=== PATIENT | female | born 2000 | race Caucasian/White ===

== ENCOUNTER 2019-05-31 03:14 | Emergency (ER) | payer SELFPAY ==
[2019-05-31 03:19] VITALS: BP 144/107; PULSE 120; RESP 16; TEMP 36.6; O2SAT 98; BMI 45.6
--- NOTE | 2019-05-31 03:59 | ED_ITS ---
Entered by Lisa Pereyra, acting as scribe for Scott Olea DO May 31, 2019 03:14 HPI - Headache General: Chief Complaint: Headache Stated Complaint: MIGRAINE,DIZZINESS Time Seen by Provider: 05/31/19 04:12 Source: patient Mode of arrival: ambulatory Limitations: no limitations History of Present Illness: HPI Narrative: 19 yo f came to the er p[facility] for a headache. Onset was 4 days ago. Pt states that she has also has been nauseous and rt arm has been itching since she got here. MD elicited complaint: headache Onset (ago): day(s) (4 days ago) Onset description: suddenly Severity: moderate Quality & Timing: throbbing Exacerbating factors: none Associated symptoms: Reports nausea; Deny chest pain, confusion, fever(s), rash or vomiting Treatments prior to arrival: other Review of Systems Const: Denies: fever Eyes: Denies: change in vision or blurry vision ENMT: Denies: painful swallowing, swelling of lips/tongue, bleeding gums, dental pain, Change in hearing, nose bleeds, post nasal drip or facial/sinus pain Card: Denies: chest pain Resp: Denies: shortness of breath, productive cough, non-productive cough or wheezing GI: Reports: nausea; Denies: vomiting : Denies: painful urination, urinary frequency, urinary urgency or blood in urine Musc: Denies: neck pain, back pain, redness or joint warmth Skin/Breast: Denies: rash Neuro: Denies: confusion Psych: Denies: anxiety, visual hallucinations or auditory hallucinations PFSH ED PFSH: Statuses (acute, chronic, etc) shown below reflect problem list status as previously entered and may not be historically accurate Social History Smoking and tobacco status: light tobacco smoker Physical Exam Const: GENERAL APPEARANCE: well developed ORIENTATION/CONSCIOUSNESS: Yes oriented to person, Yes oriented to place and Yes oriented to time HENMT: COMMON NORMALS: normocephalic, external ears normal and external nose normal HEAD & SCALP: normocephalic; no scalp tenderness FACE & SINUS: normal facial exam NOSE: external nose normal and no nasal discharge EXTERNAL EAR: Yes external ears normal MOUTH: tongue normal TEETH & GINGIVA: no abnormal tooth and associated gingiva THROAT: posterior oropharynx normal; no peritonsillar mass Eye: COMMON NORMALS: PERRL, EOMs intact bilaterally and conjunctivae normal EYELID: eyelids normal CONJUNCTIVA: Yes conjunctivae normal PUPIL: Yes PERRL Neck/C-Spine: COMMON NORMALS: full ROM GENERAL: No tracheal deviation CERVICAL SPINE: Yes normal cervical lordosis and No cervical spine tenderness Chest: COMMONS NORMALS: inspection of chest normal CHEST: No tenderness Resp: COMMON NORMALS: clear to auscultation bilaterally EFFORT & INSPECTION: No tachypneic, No respiratory distress, No retractions, No uses accessory muscles and No tracheal deviation AUSCULTATION: clear to auscultation bilaterally, no rhonchi, no wheezes and lung sounds not diminished Cardio: COMMON NORMALS: regular rate and regular rhythm RATE: regular rate RHYTHM: regular rhythm HEART SOUNDS: no murmurs PERIPHERAL PULSES: radial pulses present GI: INSPECTION: No abdominal distension AUSCULTATION: No hyperactive bowel sounds and No hypoactive bowel sounds PALPATION: No guarding and No rigid PERCUSSION: no dullness to percussion and no tympanic to percussion : COMMON NORMALS: Yes no CVA tenderness BLADDER/KIDNEY EXAM: Yes no CVA tenderness Back/Pelvis: COMMON NORMALS: no CVA tenderness Neuro: SENSORIUM/ORIENTATION: Yes oriented to person, Yes oriented to place and Yes oriented to time CRANIAL NERVES: Yes CN normal except as noted COORDINATION/BALANCE: [id number] test normal SPEECH: speech normal MOTOR EXAM: no pronator drift COORDINATION: [id number] test normal Psych: COMMON NORMALS: mental status grossly normal Skin: COMMON NORMALS: no rashes or lesions noted GENERAL SKIN EXAM: no rashes or lesions noted Course ED course: Improved headache. Vital Signs: Vital signs: Vital Signs Temperature 98 F 05/31/19 03:19 Pulse Rate 120 H 05/31/19 03:19 Respiratory Rate 17 05/31/19 05:31 Blood Pressure 144/107 05/31/19 03:19 Pulse Oximetry 98 05/31/19 03:19 MDM - Headache Lab Data: Attestation: I reviewed the patient's lab results. Labs: Lab Results 05/31/19 05/31/19 05/31/19 Range/Units 04:45 04:55 04:55 WBC 10.2 (4.5-13.0) 10^3/ uL RBC 4.18 (4.1-5.3) 10^6/u L Hgb 12.7 (11.5-15.3) g/dL Hct 38.2 (37.0-47.0) % MCV 91.4 (81-99) fL MCH 30.4 (28.0-34.0) pg MCHC 33.2 (30.0-36.0) g/dL RDW 12.1 (12.1-15.1) % Plt Count 209 (130-400) 10^3/c mm MPV 10.8 H (7.4-10.4) fL Neut % (Auto) 53.5 % Lymph % (Auto) 35.0 % [place] % (Auto) 8.3 % Eos % (Auto) 1.5 % Baso % (Auto) 0.4 % Neut # (Auto) 5.4 (1.8-8.0) 10^3/u L Lymph # (Auto) 3.6 (1.5-6.5) 10^3/u L [place] # (Auto) 0.8 (0.2-0.9) 10^3/u L Eos # (Auto) 0.2 (0.0-0.8) 10^3/u L Baso # (Auto) 0.0 (0.0-0.1) 10^3/u L Nucleated RBC % (a uto) 0 % Nucleated RBCs # 0.0 /100WBC Sodium 139 (136-145) mmol/L Potassium 4.1 (3.5-5.1) mmol/L Chloride 104 (98-107) mmol/L Carbon Dioxide 23 (22-29) mmol/L Anion Gap 16.1 (5-19) BUN 7 (6-20) mg/dL Creatinine 0.6 (0.5-0.9) mg/dL GFR Calculation 127.5 (90-130) mL/min Glucose 71 L (74-109) mg/dL Calcium 9.7 (8.5-10.5) mg/dL Total Bilirubin 0.3 (0.15-1.2) mg/dL AST 26 (0-32) U/L ALT 46 H (0-33) U/L Alkaline Phosphata se 87 (35-105) IU/L Total Protein 6.9 (6.6-8.7) g/dL Albumin 4.4 (3.5-5.2) g/dL Globulin 2.5 (1.3-4.6) g/dL HCG, Qual (Negative) Urine Color Yellow (Yellow) Urine Appearance Clear (CLEAR) Urine pH 5 (5-7) Ur Specific Gravit y 1.025 (1.005-1.030) Urine Protein Neg (Negative) Urine Glucose (UA) Norm (Normal) Urine Ketones Negative (Negative) Urine Occult Blood Neg (Negative) Urine Nitrate Negative (Negative) Urine Bilirubin Neg (NEGATIVE) Urine Urobilinogen Norm (Negative) mg/dL Ur Leukocyte Ghada ase Negative (Negative) 05/31/19 Range/Units 04:55 WBC (4.5-13.0) 10^3/ uL RBC (4.1-5.3) 10^6/u L Hgb (11.5-15.3) g/dL Hct (37.0-47.0) % MCV (81-99) fL MCH (28.0-34.0) pg MCHC (30.0-36.0) g/dL RDW (12.1-15.1) % Plt Count (130-400) 10^3/c mm MPV (7.4-10.4) fL Neut % (Auto) % Lymph % (Auto) % [place] % (Auto) % Eos % (Auto) % Baso % (Auto) % Neut # (Auto) (1.8-8.0) 10^3/u L Lymph # (Auto) (1.5-6.5) 10^3/u L [place] # (Auto) (0.2-0.9) 10^3/u L Eos # (Auto) (0.0-0.8) 10^3/u L Baso # (Auto) (0.0-0.1) 10^3/u L Nucleated RBC % (a uto) % Nucleated RBCs # /100WBC Sodium (136-145) mmol/L Potassium (3.5-5.1) mmol/L Chloride (98-107) mmol/L Carbon Dioxide (22-29) mmol/L Anion Gap (5-19) BUN (6-20) mg/dL Creatinine (0.5-0.9) mg/dL GFR Calculation (90-130) mL/min Glucose (74-109) mg/dL Calcium (8.5-10.5) mg/dL Total Bilirubin (0.15-1.2) mg/dL AST (0-32) U/L ALT (0-33) U/L Alkaline Phosphata se (35-105) IU/L Total Protein (6.6-8.7) g/dL Albumin (3.5-5.2) g/dL Globulin (1.3-4.6) g/dL HCG, Qual Negative (Negative) Urine Color (Yellow) Urine Appearance (CLEAR) Urine pH (5-7) Ur Specific Gravit y (1.005-1.030) Urine Protein (Negative) Urine Glucose (UA) (Normal) Urine Ketones (Negative) Urine Occult Blood (Negative) Urine Nitrate (Negative) Urine Bilirubin (NEGATIVE) Urine Urobilinogen (Negative) mg/dL Ur Leukocyte Ghada ase (Negative) Discharge Plan Discharge Patient Disposition: Home, Self-Care Clinical Impression: Headache Qualifiers: Headache type: unspecified Headache chronicity pattern: acute headache Intractability: not intractable Qualified Code(s): R51 - Headache Condition: Stable Discharge Orders: Discharge Order (Routine); Ordered 05/31/19 Ordered By: Scott Olea Referrals: Ruthie Chung PMHNP [Primary Care Provider] - Micky Eaton DO [Family Provider] - 4-7 days Discharge Diet: Advance as tolerated Discharge Activity: Resume usual activity Patient Instructions: Acute Headache (ED) Activity Restrictions/Additional Instructions: Return for worsening headache, fever, mental status changes, weakness, vomiting liquids or medications, other concerning symptoms. Coding Level of Care Code ED Occ Therapy Asst for Chg Fwd The documentation recorded by the Roddy morgan Stephanie Lyn, accurately reflects the service I personally performed and the decisions made by Lefty belcher Jeremy John, DO May 31, 2019 03:14
[2019-05-31 05:05] LABS: Basophils % 0.4 %; Eosinophils # 0.2 10^3/uL (0.0-0.8); Eosinophils % 1.5 %; Hematocrit 38.2 % (37.0-47.0); Hemoglobin 12.7 g/dL (11.5-15.3); Lymphocytes # 3.6 10^3/uL (1.5-6.5); Mean Corpuscular HGB Conc 33.2 g/dL (30.0-36.0); Mean Corpuscular Hemoglobin 30.4 pg (28.0-34.0); Mean Corpuscular Volume 91.4 fL (81-99); Mean Platelet Volume 10.8 fL (7.4-10.4); Monocytes # 0.8 10^3/uL (0.2-0.9); Monocytes % 8.3 %; Neutrophils # 5.4 10^3/uL (1.8-8.0); Neutrophils % 53.5 %; Nucleated Red Blood Cells % 0 %; Platelet Count 209 10^3/cmm (130-400); Red Blood Count 4.18 10^6/uL (4.1-5.3); Red Cell Distribution Width 12.1 % (12.1-15.1); White Blood Count 10.2 10^3/uL (4.5-13.0)
[2019-05-31 05:19] LABS: Add Urine Microscopic? NO
[2019-05-31 05:21] LABS: HCG, Serum Qual Negative (Negative)
[2019-05-31 05:26] LABS: Alanine Aminotransferase 46 U/L (0-33); Albumin Level 4.4 g/dL (3.5-5.2); Alkaline Phosphatase 87 IU/L (35-105); Anion Gap 16.1 (5-19); Aspartate Amino Transferase 26 U/L (0-32); Blood Urea Nitrogen 7 mg/dL (6-20); Calcium 9.7 mg/dL (8.5-10.5); Carbon Dioxide 23 mmol/L (22-29); Chloride 104 mmol/L (98-107); Globulin 2.5 g/dL (1.3-4.6); Glomerular Filtration Rate 127.5 mL/min (90-130); Glucose 71 mg/dL (74-109); Potassium 4.1 mmol/L (3.5-5.1); Sodium 139 mmol/L (136-145); Total Bilirubin 0.3 mg/dL (0.15-1.2); Total Protein 6.9 g/dL (6.6-8.7)
[2019-05-31 05:31] VITALS: RESP 17
[2019-05-31] MEDS: dexamethasone 4 mg/mL INJ 8 MG IVP (05:31)
[2019-05-31] MEDS: diphenhydrAMINE 50 mg/mL SDV 1mL IVP (05:31)
[2019-05-31] MEDS: fentaNYL 50 mcg/mL INJ 2mL 100 MCG IVP (05:31)
[2019-05-31] MEDS: ondansetron 2 mg/ML SDV 2 mL 4 MG IVP (05:32)
[2019-05-31 05:44] LABS: Bilirubin Urine Neg (NEGATIVE); Blood Urine Neg (Negative); Glucose Urine UA Norm (Normal); Ketones Urine Negative (Negative); Leukocyte Esterase Urine Negative (Negative); Nitrate Urine Negative (Negative); Protein Urine Neg (Negative); Specific Gravity, Urine 1.025 (1.005-1.030); Urine Appearance Clear (CLEAR); Urine Color Yellow (Yellow); Urobilinogen Urine Norm (Negative); pH Urine 5 (5-7)
[2019-05-31 07:45] VITALS: BP 139/92; PULSE 102; RESP 16; O2SAT 97
== END 2019-05-31 07:46 | disposition home or self-care (01) ==
PROVIDERS: Emergency Provider Emergency Medicine; Family Provider Electrodiagnostic Medicine; PCP Nurse Practitioner Psychiatric/Mental Health
DX: R51 Headache (principal); F17.210 Nicotine dependence, cigarettes, uncomplicated
CPT/HCPCS: 80053; 81003; 84703; 85025; 96374; 99281; J1100; J1200; J2405; J3010

== ENCOUNTER 2019-06-04 06:11 | Emergency (ER) | payer SELFPAY ==
[2019-06-04 06:12] VITALS: BMI 44.1
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
[2019-06-04 06:17] VITALS: BP 149/106; PULSE 110; RESP 16; TEMP 36.6; O2SAT 98
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
--- NOTE | 2019-06-04 06:52 | PC.NURSE ---
patient advised to provide urine specimen
[2019-06-04 07:05] LABS: Basophils # 0.1 10^3/uL (0.0-0.1); Basophils % 0.6 %; Eosinophils # 0.3 10^3/uL (0.0-0.8); Eosinophils % 2.4 %; Hematocrit 41.9 % (37.0-47.0); Hemoglobin 13.4 g/dL (11.5-15.3); Lymphocytes # 3.6 10^3/uL (1.5-6.5); Lymphocytes % 34.8 %; Mean Corpuscular Hemoglobin 28.8 pg (28.0-34.0); Mean Corpuscular Volume 89.9 fL (81-99); Monocytes # 0.6 10^3/uL (0.2-0.9); Monocytes % 5.6 %; Neutrophils # 5.7 10^3/uL (1.8-8.0); Neutrophils % 54.8 %; Nucleated Red Blood Cells % 0 %; Platelet Count 200 10^3/cmm (130-400); Red Blood Count 4.66 10^6/uL (4.1-5.3); Red Cell Distribution Width 12.1 % (12.1-15.1); White Blood Count 10.4 10^3/uL (4.5-13.0)
[2019-06-04 07:26] LABS: Anion Gap 17.3 (5-19); Blood Urea Nitrogen 9 mg/dL (6-20); Calcium 10.2 mg/dL (8.5-10.5); Carbon Dioxide 18 mmol/L (22-29); Chloride 101 mmol/L (98-107); Glomerular Filtration Rate 91.4 mL/min (90-130); Glucose 107 mg/dL (74-109); Osmolality Calculated 270 mOsm/kg (285-295); Potassium 4.3 mmol/L (3.5-5.1); Sodium 132 mmol/L (136-145)
[2019-06-04 08:44] LABS: Add Urine Microscopic? YES; Bilirubin Urine Neg (NEGATIVE); Blood Urine 2+ (Negative); Glucose Urine UA Norm (Normal); Ketones Urine Negative (Negative); Leukocyte Esterase Urine Negative (Negative); Nitrate Urine Negative (Negative); Protein Urine Neg (Negative); Specific Gravity, Urine 1.025 (1.005-1.030); Urine Appearance Clear (CLEAR); Urine Color Yellow (Yellow); Urobilinogen Urine Norm (Negative)
[2019-06-04 08:49] LABS: Add Urine Culture? No; Bacteria Urine 1+; Mucus Urine 1+; RBC Urine 0-4 /hpf (0-2); Squamous Epithelial Cell Urine 0-4 (0-5)
[2019-06-04 10:26] VITALS: PULSE 81; RESP 20; O2SAT 98
== END 2019-06-04 09:20 | disposition home or self-care (01) ==
PROVIDERS: Emergency Provider Family Medicine; Family Provider Electrodiagnostic Medicine; PCP Nurse Practitioner Psychiatric/Mental Health
DX: Z04.1 Encounter for examination and observation following transport accident (principal); V89.2XXA Person injured in unspecified motor-vehicle accident, traffic, initial encounter; F17.210 Nicotine dependence, cigarettes, uncomplicated
CPT/HCPCS: 36415; 73030; 73080; 73502; 73562; 80048; 81001; 85025; 99282; 99283

== ENCOUNTER → 2019-06-17 14:38 | Outpatient (BNVA) | payer OTHER, SELFPAY | PROVIDERS: Family Provider Electrodiagnostic Medicine; PCP Nurse Practitioner Psychiatric/Mental Health; Visit Provider Nurse Practitioner Psychiatric/Mental Health | DX: Z79.899 Other long term (current) drug therapy (principal); F31.13 Bipolar disorder, current episode manic without psychotic features, severe | CPT/HCPCS: 80061; 83036 ==

== ENCOUNTER 2019-06-20 18:33 | Emergency (ER) | payer SELFPAY ==
[2019-06-18 11:23] VITALS: BP 117/71; BMI 48.3
[2019-06-20 18:51] VITALS: BP 112/85; PULSE 106; RESP 20; TEMP 37; O2SAT 97; BMI 47.2
--- NOTE | 2019-06-20 19:05 | W.ED.GENADLT ---
HPI - General Adult General: Chief complaint: General Medical Stated complaint: cough, sore throat,body aches Time Seen by Provider: 06/20/19 19:03 History of Present Illness: HPI narrative: Fever aches chills times couple days. Patient did have flu vaccine. MD complaint: flu Onset (ago): day(s) (2) Associated symptoms: Reports cough and fevers/chills; Deny chest pain, dyspnea, headache(s), nausea, rash or vomiting Review of Systems Const: Reports: fever, chills and body aches Eyes: Denies: change in vision or blurry vision ENMT: Denies: throat pain or nasal congestion Card: Denies: chest pain or shortness of breath on exertion Resp: Reports: non-productive cough; Denies: shortness of breath or productive cough GI: Denies: abdominal pain, nausea or vomiting Musc: Denies: extremity pain Skin/Breast: Denies: rash Neuro: Denies: headache Psych: Denies: anxiety or depression Marty/Lymph: Denies: easy bruising PFSH ED PFSH: Social History Smoking and tobacco status: never smoked Current gender identity: Female Female Reproductive History: Date of last menstrual period: 06/08/19 Physical Exam Const: COMMON NORMALS: no apparent distress, average body habitus and oriented x3 HENMT: COMMON NORMALS: normocephalic HEAD & SCALP: normal to inspection and normocephalic FACE & SINUS: normal facial exam Eye: COMMON NORMALS: conjunctivae normal GENERAL EYE: normal appearance of both eyes CONJUNCTIVA: Yes conjunctivae normal Neck/C-Spine: COMMON NORMALS: no JVD Chest: COMMONS NORMALS: inspection of chest normal Resp: COMMON NORMALS: normal respiratory effort and clear to auscultation bilaterally AUSCULTATION: clear to auscultation bilaterally Cardio: COMMON NORMALS: no JVD, regular rate and regular rhythm RATE: regular rate RHYTHM: regular rhythm GI: COMMON NORMALS: normal to inspection, nondistended, normoactive bowel sounds Extremity: COMMON NORMALS: normal to inspection and full ROM Neuro: COMMON NORMALS: oriented x3 Course Vital Signs: Vital signs: Vital Signs Temperature 98.6 F 06/20/19 18:51 Pulse Rate 106 H 06/20/19 18:51 Respiratory Rate 20 H 06/20/19 18:51 Blood Pressure 112/85 06/20/19 18:51 Pulse Oximetry 97 06/20/19 18:51 Discharge Plan Discharge Prescriptions: No Action oxcarbazepine 150 mg tablet 150 mg PO BID RF: 0 Benadryl 25 mg Capsule 25 mg PO PRN RF: 0 Vicks Nyquil Nighttime Relief See Rx Instructions .ROUTE .COMPLEX RF: 0 gabapentin 300 mg Capsule 300 mg PO TID RF: 0 Remeron 15 mg Tablet 15 mg PO BEDTIME RF: 0 Coding Level of Care Code ED Specialist Managers for Reyna Johns
[2019-06-20 20:00] LABS: Rapid Strep A Test Negative (Negative)
[2019-06-20 20:12] LABS: Influenza A by IFA Negative (Negative); Influenza B by IFA Negative (Negative)
[2019-06-20 20:46] VITALS: BP 152/74; PULSE 80; RESP 17; O2SAT 98
== END 2019-06-20 20:47 | disposition home or self-care (01) ==
PROVIDERS: Emergency Medicine; Emergency Provider Nurse Practitioner Family; Family Provider Electrodiagnostic Medicine; PCP Nurse Practitioner Psychiatric/Mental Health
DX: R05 Cough (principal); J02.9 Acute pharyngitis, unspecified; R50.9 Fever, unspecified
CPT/HCPCS: 87081; 87804; 87880; 99282

== ENCOUNTER 2019-08-01 01:12 | Emergency (ER) | payer SELFPAY ==
[2019-06-18 11:23] VITALS: BP 117/71; BMI 48.3
[2019-08-01 01:21] VITALS: BP 122/86; PULSE 98; RESP 18; TEMP 36.6; O2SAT 96; BMI 47.2
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
--- NOTE | 2019-08-01 01:23 | W.ED.ABDPA2 ---
HPI - Abdominal Pain General: Chief Complaint: Abdominal Pain Stated Complaint: kidney stone Time Seen by Provider: 08/01/19 01:22 Source: patient Mode of arrival: ambulatory Limitations: no limitations History of Present Illness: HPI narrative: Patient comes in with onset umbilical pain radiating into the right flank starting this evening. Patient denies any fever. Patient does report some nausea. Patient appears well. Patient appears in mild pain. Patient thinks she has a kidney stone. Related Data: Date of Last Menstrual Period: 06/08/19 Review of Systems General: Reports: 10 or more systems reviewed and unremarkable except in HPI and below : Reports: flank pain; Denies: vaginal bleeding PFSH ED PFSH: Social History Smoking and tobacco status: never smoked Current gender identity: Female Female Reproductive History: Date of last menstrual period: 06/08/19 Physical Exam Const: COMMON NORMALS: no apparent distress and oriented x3 GENERAL APPEARANCE: cooperative HENMT: COMMON NORMALS: normocephalic, external ears normal, EAC's normal, TM's normal bilaterally and external nose normal HEAD & SCALP: normal to inspection and normocephalic FACE & SINUS: normal facial exam NOSE: external nose normal GENERAL EAR: hearing not grossly impaired EXTERNAL EAR: Yes external ears normal EXTERNAL AUDITORY CANAL: EAC's normal TYMPANIC MEMBRANE: TM's normal bilaterally MOUTH: oral and palatal mucosa normal THROAT: posterior oropharynx normal Eye: COMMON NORMALS: PERRL and EOMs intact bilaterally PUPIL: Yes PERRL Neck/C-Spine: COMMON NORMALS: full ROM and no lymphadenopathy Lymph: LYMPHATIC: no lymphedema noted Chest: COMMONS NORMALS: inspection of chest normal and palpation of chest normal Resp: COMMON NORMALS: normal respiratory effort and clear to auscultation bilaterally AUSCULTATION: clear to auscultation bilaterally Cardio: COMMON NORMALS: regular rate and regular rhythm RATE: regular rate RHYTHM: regular rhythm GI: COMMON NORMALS: normal to inspection, nondistended, normoactive bowel sounds and non-tender : BLADDER/KIDNEY EXAM: Yes CVA tenderness Back/Pelvis: COMMON NORMALS: thoracic and lumbar spine normal to inspection GENERAL BACK: Yes CVA tenderness CVA tenderness: right Extremity: COMMON NORMALS: normal to inspection GENERAL: No edema Neuro: COMMON NORMALS: oriented x3, moves all extremities and no focal motor deficits Psych: COMMON NORMALS: mental status grossly normal and cooperative Skin: COMMON NORMALS: no rashes or lesions noted GENERAL SKIN EXAM: no rashes or lesions noted Course Vital Signs: Vital signs: Vital Signs Temperature 97.8 F 08/01/19 01:21 Pulse Rate 98 08/01/19 01:21 Respiratory Rate 18 08/01/19 01:21 Blood Pressure 122/86 08/01/19 01:21 Pulse Oximetry 96 08/01/19 01:21 MDM - Abdominal Pain MDM Narrative: Medical decision making narrative: Patient comes in with suprapubic pain radiating into the right flank. On exam patient has some CVA tenderness in the right flank. Abdomen soft nontender with some minimal suprapubic tenderness on palpation. Respirations are even lungs are clear to auscultation. Differential diagnosis includes urinary tract infection, renal calculi, appendicitis, constipation, gastroenteritis. Laboratory values noted no significant white blood cell count, normal kidney function, normal liver function. CT scan of the abdomen pelvis noted no acute process or obstructing renal stone. Patient did have a small stone in the right kidney. Urinalysis did note positive nitrates and leukoesterase. Recommend treatment for urinary tract infection with a gram of Rocephin IM in the emergency department. Patient was given 30 mg of Toradol for pain and 4 mg of Zofran for nausea. Patient will be continued on cephalexin and Pyridium for the remainder of treatment. Patient was reviewed that she does have a penicillin allergy and she may have some cross-reactivity with the Keflex but the likelihood is small. Patient reports understanding agreed to plan and need for follow-up as needed. Lab Data: Labs: Lab Results 08/01/19 08/01/19 08/01/19 Range/Units 01:45 01:45 01:45 WBC 12.9 (4.5-13.0) 10^3/ uL RBC 4.50 (4.1-5.3) 10^6/u L Hgb 13.3 (11.5-15.3) g/dL Hct 40.6 (37.0-47.0) % MCV 90.2 (81-99) fL MCH 29.6 (28.0-34.0) pg MCHC 32.8 (30.0-36.0) g/dL RDW 12.0 L (12.1-15.1) % Plt Count 210 (130-400) 10^3/c mm MPV 11.1 H (7.4-10.4) fL Neut % (Auto) 60.2 % Lymph % (Auto) 28.1 % [place] % (Auto) 7.1 % Eos % (Auto) 3.2 % Baso % (Auto) 0.5 % Neut # (Auto) 7.8 (1.8-8.0) 10^3/u L Lymph # (Auto) 3.6 (1.5-6.5) 10^3/u L [place] # (Auto) 0.9 (0.2-0.9) 10^3/u L Eos # (Auto) 0.4 (0.0-0.8) 10^3/u L Baso # (Auto) 0.1 (0.0-0.1) 10^3/u L Nucleated RBC % (a uto) 0 % Nucleated RBCs # 0.0 /100WBC Sodium 137 (136-145) mmol/L Potassium 4.2 (3.5-5.1) mmol/L Chloride 98 (98-107) mmol/L Carbon Dioxide 27 (22-29) mmol/L Anion Gap 16.2 (5-19) BUN 12 (6-20) mg/dL Creatinine 0.9 (0.5-0.9) mg/dL GFR Calculation 79.8 L (90-130) mL/min Glucose 94 (65-115) mg/dL Calculated Osmolal ity 280 L (285-295) mOsm/k g Calcium 10.8 H (8.5-10.5) mg/dL Total Bilirubin 0.3 (0.15-1.2) mg/dL AST 18 (0-32) U/L ALT 29 (0-33) U/L Alkaline Phosphata se 83 (35-105) IU/L Total Protein 6.9 (6.6-8.7) g/dL Albumin 4.1 (3.5-5.2) g/dL Globulin 2.8 (1.3-4.6) g/dL HCG, Qual Negative (Negative) Urine Color (Yellow) Urine Appearance (CLEAR) Urine pH (5-7) Ur Specific Gravit y (1.005-1.030) Urine Protein (Negative) Urine Glucose (UA) (Normal) Urine Ketones (Negative) Urine Blood (Negative) Urine Nitrate (Negative) Urine Bilirubin (NEGATIVE) Urine Urobilinogen (Negative) mg/dL Ur Leukocyte Ghada ase (Negative) 08/01/19 Range/Units 02:00 WBC (4.5-13.0) 10^3/ uL RBC (4.1-5.3) 10^6/u L Hgb (11.5-15.3) g/dL Hct (37.0-47.0) % MCV (81-99) fL MCH (28.0-34.0) pg MCHC (30.0-36.0) g/dL RDW (12.1-15.1) % Plt Count (130-400) 10^3/c mm MPV (7.4-10.4) fL Neut % (Auto) % Lymph % (Auto) % [place] % (Auto) % Eos % (Auto) % Baso % (Auto) % Neut # (Auto) (1.8-8.0) 10^3/u L Lymph # (Auto) (1.5-6.5) 10^3/u L [place] # (Auto) (0.2-0.9) 10^3/u L Eos # (Auto) (0.0-0.8) 10^3/u L Baso # (Auto) (0.0-0.1) 10^3/u L Nucleated RBC % (a uto) % Nucleated RBCs # /100WBC Sodium (136-145) mmol/L Potassium (3.5-5.1) mmol/L Chloride (98-107) mmol/L Carbon Dioxide (22-29) mmol/L Anion Gap (5-19) BUN (6-20) mg/dL Creatinine (0.5-0.9) mg/dL GFR Calculation (90-130) mL/min Glucose (65-115) mg/dL Calculated Osmolal ity (285-295) mOsm/k g Calcium (8.5-10.5) mg/dL Total Bilirubin (0.15-1.2) mg/dL AST (0-32) U/L ALT (0-33) U/L Alkaline Phosphata se (35-105) IU/L Total Protein (6.6-8.7) g/dL Albumin (3.5-5.2) g/dL Globulin (1.3-4.6) g/dL HCG, Qual (Negative) Urine Color Yellow (Yellow) Urine Appearance Turbid (CLEAR) Urine pH 6 (5-7) Ur Specific Gravit y 1.020 (1.005-1.030) Urine Protein 1+ H (Negative) Urine Glucose (UA) Norm (Normal) Urine Ketones Negative (Negative) Urine Blood 3+ H (Negative) Urine Nitrate Positive H (Negative) Urine Bilirubin Neg (NEGATIVE) Urine Urobilinogen Norm (Negative) mg/dL Ur Leukocyte Ghada ase 2+ H (Negative) Discharge Plan Discharge Patient Disposition: Home, Self-Care Clinical Impression: Cystitis Condition: Stable Prescriptions: New cephalexin 500 mg capsule 500 mg PO BID 7 Days Qty: 14 RF: 0 phenazopyridine 200 mg tablet 200 mg PO Q8H PRN (Reason: urine pain) Qty: 6 RF: 0 No Action oxcarbazepine 150 mg tablet 150 mg PO BID RF: 0 Benadryl 25 mg Capsule 25 mg PO PRN RF: 0 Vicks Nyquil Nighttime Relief See Rx Instructions .ROUTE .COMPLEX RF: 0 gabapentin 300 mg Capsule 300 mg PO TID RF: 0 Remeron 15 mg Tablet 15 mg PO BEDTIME RF: 0 Discharge Orders: Discharge Order (Routine); Ordered 08/01/19 Ordered By: Ben Lawson Referrals: Micky Eaton DO [Primary Care Provider] - Discharge Diet: Usual diet Discharge Activity: Increase activity as tolerated Patient Instructions: Urinary Tract Infection in Women (ED) Activity Restrictions/Additional Instructions: Drink plenty of water Activity as tolerated Follow-up with primary care in one week as needed Return to ER for high fever or new concerns Coding Level of Care Code ED Human Machine Interface Engineer for Renya Fwd Exam Comprehensive
[2019-08-01] MEDS: ketorolac 30 mg/mL INJ IM (01:45)
[2019-08-01] MEDS: ondansetron 4 MG Tablet PO (01:50)
[2019-08-01 01:56] LABS: Basophils # 0.1 10^3/uL (0.0-0.1); Basophils % 0.5 %; Eosinophils # 0.4 10^3/uL (0.0-0.8); Eosinophils % 3.2 %; Hematocrit 40.6 % (37.0-47.0); Hemoglobin 13.3 g/dL (11.5-15.3); Lymphocytes # 3.6 10^3/uL (1.5-6.5); Lymphocytes % 28.1 %; Mean Corpuscular HGB Conc 32.8 g/dL (30.0-36.0); Mean Corpuscular Hemoglobin 29.6 pg (28.0-34.0); Mean Corpuscular Volume 90.2 fL (81-99); Mean Platelet Volume 11.1 fL (7.4-10.4); Monocytes # 0.9 10^3/uL (0.2-0.9); Monocytes % 7.1 %; Neutrophils # 7.8 10^3/uL (1.8-8.0); Neutrophils % 60.2 %; Nucleated Red Blood Cells % 0 %; Platelet Count 210 10^3/cmm (130-400); White Blood Count 12.9 10^3/uL (4.5-13.0)
[2019-08-01 02:06] LABS: HCG, Serum Qual Negative (Negative)
[2019-08-01 02:14] LABS: Alanine Aminotransferase 29 U/L (0-33); Albumin Level 4.1 g/dL (3.5-5.2); Alkaline Phosphatase 83 IU/L (35-105); Anion Gap 16.2 (5-19); Aspartate Amino Transferase 18 U/L (0-32); Blood Urea Nitrogen 12 mg/dL (6-20); Calcium 10.8 mg/dL (8.5-10.5); Carbon Dioxide 27 mmol/L (22-29); Chloride 98 mmol/L (98-107); Globulin 2.8 g/dL (1.3-4.6); Glomerular Filtration Rate 79.8 mL/min (90-130); Glucose 94 mg/dL (65-115); Osmolality Calculated 280 mOsm/kg (285-295); Potassium 4.2 mmol/L (3.5-5.1); Sodium 137 mmol/L (136-145); Total Bilirubin 0.3 mg/dL (0.15-1.2); Total Protein 6.9 g/dL (6.6-8.7)
[2019-08-01 02:55] LABS: Blood Urine 3+ (Negative); Glucose Urine UA Norm (Normal); Ketones Urine Negative (Negative); Protein Urine 1+ (Negative); Urine Appearance Turbid (CLEAR); Urine Color Yellow (Yellow); pH Urine 6 (5-7)
[2019-08-01 02:56] LABS: Add Urine Microscopic? YES; Bilirubin Urine Neg (NEGATIVE); Leukocyte Esterase Urine 2+ (Negative); Nitrate Urine Positive (Negative); Urobilinogen Urine Norm (Negative)
[2019-08-01 03:06] LABS: Add Urine Culture? No; Bacteria Urine 4+; RBC Urine 25-40 /hpf (0-2); Squamous Epithelial Cell Urine 15-25 (0-5); Transitional Epi Cells Urine 0-4 /hpf; WBC Urine TOO NUMEROUS TO CNT /hpf (0-5)
[2019-08-01] MEDS: lidocaine 1% INJ 20 mL 2.1 ML IM (03:10)
[2019-08-01] MEDS: cefTRIAXone 1,000 mg SDV 1000 MG IM (03:23)
[2019-08-01 03:24] VITALS: BP 134/88; PULSE 88; RESP 18; O2SAT 97
--- NOTE | 2019-08-01 04:14 | PC.NURSE ---
RN reviewed and agrees with assessment.
== END 2019-08-01 03:24 | disposition home or self-care (01) ==
PROVIDERS: Emergency Provider Nurse Practitioner Family; Family Provider Electrodiagnostic Medicine; PCP Electrodiagnostic Medicine
DX: N30.90 Cystitis, unspecified without hematuria (principal)
CPT/HCPCS: 12345; 74176; 80053; 81001; 84703; 85025; 96372; 99282; 99283; A9270; J0696; J1885; J2001; Q0162

== ENCOUNTER 2019-08-02 15:30 | Emergency (ER) | payer MEDICARE, SELFPAY ==
[2019-06-18 11:23] VITALS: BP 117/71; BMI 48.3
== END 2019-08-02 15:45 | disposition left against medical advice (07) ==
LOC: ER 08-18 12:58
PROVIDERS: Emergency Provider Physician Assistant; Family Provider Electrodiagnostic Medicine
DX: N30.90 Cystitis, unspecified without hematuria (principal); R11.2 Nausea with vomiting, unspecified; F17.200 Nicotine dependence, unspecified, uncomplicated
CPT/HCPCS: 99281

== ENCOUNTER 2019-08-04 00:40 | Emergency (ER) | payer SELFPAY ==
[2019-06-18 11:23] VITALS: BP 117/71; BMI 48.3
[2019-08-04 00:49] VITALS: BP 161/98; PULSE 131; RESP 24; TEMP 36.5; O2SAT 98; BMI 48.6
--- NOTE | 2019-08-04 01:04 | XR_ITS ---
WS: [id number] PORTABLE CHEST HISTORY: cough COMPARISON: 11/12/2018 Lungs are clear and well expanded. No pleural effusion or pneumothorax. Cardiac size: Normal. Mediastinum/Aorta: Normal mediastinum. No osseous abnormality seen. XR/XR chest 1V portable [id number] IMPRESSION: Unremarkable portable chest.
--- NOTE | 2019-08-04 01:05 | ED_ITS ---
HPI - General Adult General: Chief complaint: General Medical Stated complaint: Throwing up, coughing, fevers Time Seen by Provider: 08/04/19 00:46 History of Present Illness: HPI narrative: 19-year-old female, frequent patient to the ER. She presents with a history of fever to 103, cough, and vomiting. She states that she is been traveling to [place] last week, and Sunday was at a constitution party where people from [place] and [place] were. She states that a couple of the people got sick the day afterwards. She presents with a friend with the same exposure with similar symptoms. Onset (ago): day(s) (3) Location: chest Severity: moderate Severity scale (1-10): 4 Pain Consistency: constant Associated symptoms: Reports cough, fevers/chills, headache(s), nausea and vomiting; Deny chest pain, dyspnea, rash, palpitations or short of breath Review of Systems Const: Reports: fever and chills Eyes: Denies: change in vision or blurry vision ENMT: Reports: painful swallowing and post nasal drip; Denies: swelling of lips/tongue, bleeding gums or facial/sinus pain Card: Denies: chest pain, palpitations, irregular heart rhythm or edema Resp: Reports: non-productive cough; Denies: shortness of breath, productive cough or wheezing GI: Reports: nausea and vomiting : Denies: painful urination, urinary frequency, urinary urgency or blood in urine Musc: Denies: neck pain, back pain, redness or joint warmth Skin/Breast: Denies: rash, itching or redness Neuro: Reports: headache Psych: Denies: anxiety PFSH ED PFSH: Social History Smoking and tobacco status: current every day smoker Current gender identity: Female Female Reproductive History: Date of last menstrual period: 06/08/19 Physical Exam Const: GENERAL APPEARANCE: well developed ORIENTATION/CONSCIOUSNESS: Yes oriented to person, Yes oriented to place and Yes oriented to time HENMT: COMMON NORMALS: normocephalic, external ears normal, EAC's normal, TM's normal bilaterally and external nose normal HEAD & SCALP: normocephalic; no scalp tenderness FACE & SINUS: normal facial exam NOSE: external nose normal, septum normal and no nasal discharge EXTERNAL EAR: Yes external ears normal EXTERNAL AUDITORY CANAL: EAC's normal and EAC abnormal TYMPANIC MEMBRANE: TM's normal bilaterally MOUTH: tongue normal THROAT: posterior oropharynx normal; no peritonsillar mass Eye: COMMON NORMALS: PERRL, EOMs intact bilaterally and conjunctivae normal EYELID: eyelids normal CONJUNCTIVA: Yes conjunctivae normal PUPIL: Yes PERRL Neck/C-Spine: COMMON NORMALS: full ROM GENERAL: No tracheal deviation Chest: COMMONS NORMALS: inspection of chest normal CHEST: No tenderness Resp: COMMON NORMALS: clear to auscultation bilaterally EFFORT & INSPECTION: No tachypneic, No respiratory distress, No retractions, No uses accessory muscles and No tracheal deviation AUSCULTATION: clear to auscultation bilaterally, no rhonchi, no wheezes and lung sounds not diminished Cardio: COMMON NORMALS: regular rate and regular rhythm RATE: regular rate and tachycardic RHYTHM: regular rhythm HEART SOUNDS: no murmurs PERIPHERAL PULSES: radial pulses present GI: INSPECTION: No abdominal distension AUSCULTATION: No hyperactive bowel sounds and No hypoactive bowel sounds PALPATION: No guarding and No rigid PERCUSSION: no dullness to percussion and no tympanic to percussion : COMMON NORMALS: Yes no CVA tenderness BLADDER/KIDNEY EXAM: Yes no CVA tenderness Back/Pelvis: COMMON NORMALS: no CVA tenderness Neuro: SENSORIUM/ORIENTATION: Yes oriented to person, Yes oriented to place and Yes oriented to time Psych: COMMON NORMALS: mental status grossly normal Skin: COMMON NORMALS: no rashes or lesions noted GENERAL SKIN EXAM: no rashes or lesions noted Course Vital Signs: Vital signs: Vital Signs Temperature 97.7 F 08/04/19 00:49 Pulse Rate 76 08/04/19 05:20 Respiratory Rate 20 H 08/04/19 05:20 Blood Pressure 126/84 08/04/19 05:20 Pulse Oximetry 96 08/04/19 05:20 MDM - General Adult MDM Narrative: Medical decision making narrative: 19-year-old female presents with a history of fever at home, vomiting, and a cough. She was diagnosed with cystitis a couple of days ago. Her urine is still positive for urinary tract i nfection. I wonder about compliance on medication. She will be prescribed a different antibiotic, as Keflex may not cover. She is received a gram of Rocephin here. She is negative for strep, and influenza. Testing for novel coronavirus is completed. Lab Data: Labs: Lab Results 08/04/19 08/04/19 08/04/19 Range/Units 00:54 02:30 02:43 WBC 9.8 (4.5-13.0) 10^3/ uL RBC 4.19 (4.1-5.3) 10^6/u L Hgb 12.3 (11.5-15.3) g/dL Hct 41.0 (37.0-47.0) % MCV 97.9 (81-99) fL MCH 29.4 (28.0-34.0) pg MCHC 30.0 (30.0-36.0) g/dL RDW 12.1 (12.1-15.1) % Plt Count 143 (130-400) 10^3/c mm MPV 12.6 H (7.4-10.4) fL Neut % (Auto) 55.1 % Lymph % (Auto) 31.9 % [place] % (Auto) 7.6 % Eos % (Auto) 2.8 % Baso % (Auto) 0.7 % Neut # (Auto) 5.4 (1.8-8.0) 10^3/u L Lymph # (Auto) 3.1 (1.5-6.5) 10^3/u L [place] # (Auto) 0.7 (0.2-0.9) 10^3/u L Eos # (Auto) 0.3 (0.0-0.8) 10^3/u L Baso # (Auto) 0.1 (0.0-0.1) 10^3/u L Nucleated RBC % (a uto) 0 % Nucleated RBCs # 0.0 /100WBC Sodium (136-145) mmol/L Potassium (3.5-5.1) mmol/L Chloride (98-107) mmol/L Carbon Dioxide (22-29) mmol/L Anion Gap (5-19) BUN (6-20) mg/dL Creatinine (0.5-0.9) mg/dL GFR Calculation (90-130) mL/min Glucose (65-115) mg/dL Calculated Osmolal ity (285-295) mOsm/k g Calcium (8.5-10.5) mg/dL Total Bilirubin (0.15-1.2) mg/dL AST (0-32) U/L ALT (0-33) U/L Alkaline Phosphata se (35-105) IU/L C-Reactive Protein (0.0-4.9) mg/L Total Protein (6.6-8.7) g/dL Albumin (3.5-5.2) g/dL Globulin (1.3-4.6) g/dL HCG, Qual (Negative) Urine Color (Yellow) Urine Appearance (CLEAR) Urine pH (5-7) Ur Specific Gravit y (1.005-1.030) Urine Protein (Negative) Urine Glucose (UA) (Normal) Urine Ketones (Negative) Urine Blood (Negative) Urine Nitrate (Negative) Urine Bilirubin (NEGATIVE) Urine Urobilinogen (Negative) mg/dL Ur Leukocyte Ghada ase (Negative) Urine RBC (0-2) /hpf Urine WBC (0-5) /hpf Ur Squamous Epith Cells (0-5) Urine Bacteria (NONE) Urine Mucus Influenza Type A A g Negative (Negative) POC Influenza B Ag Negative (Negative) Group A Strep Rapi d Negative (Negative) 08/04/19 08/04/19 08/04/19 Range/Units 02:43 03:35 03:51 WBC (4.5-13.0) 10^3/ uL RBC (4.1-5.3) 10^6/u L Hgb (11.5-15.3) g/dL Hct (37.0-47.0) % MCV (81-99) fL MCH (28.0-34.0) pg MCHC (30.0-36.0) g/dL RDW (12.1-15.1) % Plt Count (130-400) 10^3/c mm MPV (7.4-10.4) fL Neut % (Auto) % Lymph % (Auto) % [place] % (Auto) % Eos % (Auto) % Baso % (Auto) % Neut # (Auto) (1.8-8.0) 10^3/u L Lymph # (Auto) (1.5-6.5) 10^3/u L [place] # (Auto) (0.2-0.9) 10^3/u L Eos # (Auto) (0.0-0.8) 10^3/u L Baso # (Auto) (0.0-0.1) 10^3/u L Nucleated RBC % (a uto) % Nucleated RBCs # /100WBC Sodium 138 (136-145) mmol/L Potassium 4.2 (3.5-5.1) mmol/L Chloride 103 (98-107) mmol/L Carbon Dioxide 24 (22-29) mmol/L Anion Gap 15.2 (5-19) BUN 8 (6-20) mg/dL Creatinine 0.8 (0.5-0.9) mg/dL GFR Calculation 91.4 (90-130) mL/min Glucose 107 (65-115) mg/dL Calculated Osmolal ity 282 L (285-295) mOsm/k g Calcium 9.4 (8.5-10.5) mg/dL Total Bilirubin 0.2 (0.15-1.2) mg/dL AST 22 (0-32) U/L ALT 25 (0-33) U/L Alkaline Phosphata se 73 (35-105) IU/L C-Reactive Protein 57.1 H (0.0-4.9) mg/L Total Protein 6.6 (6.6-8.7) g/dL Albumin 3.6 (3.5-5.2) g/dL Globulin 3.0 (1.3-4.6) g/dL HCG, Qual Negative (Negative) Urine Color Yellow (Yellow) Urine Appearance Cloudy (CLEAR) Urine pH 5 (5-7) Ur Specific Gravit y 1.020 (1.005-1.030) Urine Protein Neg (Negative) Urine Glucose (UA) Norm (Normal) Urine Ketones Negative (Negative) Urine Blood 2+ H (Negative) Urine Nitrate Negative (Negative) Urine Bilirubin Neg (NEGATIVE) Urine Urobilinogen Norm (Negative) mg/dL Ur Leukocyte Ghada ase 2+ H (Negative) Urine RBC 5-10 H (0-2) /hpf Urine WBC 15-25 H (0-5) /hpf Ur Squamous Epith Cells 15-25 H (0-5) Urine Bacteria 1+ H (NONE) Urine Mucus 1+ Influenza Type A A g (Negative) POC Influenza B Ag (Negative) Group A Strep Rapi d (Negative) Discharge Plan Discharge Patient Disposition: Home, Self-Care Clinical Impression: Cystitis Vomiting Qualifiers: Vomiting type: unspecified Vomiting Intractability: unspecified Nausea presence: with nausea Qualified Code(s): R11.2 - Nausea with vomiting, unspecified Condition: Stable Prescriptions: New Zofran 4 mg tablet 4 mg PO Q6H PRN (Reason: nausea and vomiting) Qty: 10 RF: 0 Macrobid 100 mg capsule 100 mg PO Q12H 7 Days Qty: 14 RF: 0 No Action cephalexin 500 mg capsule 500 mg PO BID 7 Days Qty: 14 RF: 0 phenazopyridine 200 mg tablet 200 mg PO Q8H PRN (Reason: urine pain) Qty: 6 RF: 0 oxcarbazepine 150 mg tablet 150 mg PO BID RF: 0 Benadryl 25 mg Capsule 25 mg PO PRN RF: 0 Vicks Nyquil Nighttime Relief See Rx Instructions .ROUTE .COMPLEX RF: 0 gabapentin 300 mg Capsule 300 mg PO TID RF: 0 Remeron 15 mg Tablet 15 mg PO BEDTIME RF: 0 Discharge Orders: Discharge Order (Routine); Ordered 08/04/19 Ordered By: Scott Olea Referrals: Micky Eaton DO [Primary Care Provider] - 4-7 days Discharge Diet: Advance as tolerated Discharge Activity: Increase activity as tolerated Patient Instructions: Urinary Tract Infection in Women (ED) Activity Restrictions/Additional Instructions: You should quarantine your self at home until test results for the novel coronavirus are completed and confirmed negative. Take the new antibiotic for your bladder infection. Take the nausea medication scheduled for the next 24 hours, then as needed. Return for worsening symptoms despite treatment Discharge Date/Time: 08/04/19 05:20 Coding Level of Care Code ED It Program Engagement Director for Reyna Fwd Exam Comprehensive
[2019-08-04 01:49] LABS: Influenza A by IFA Negative (Negative); Influenza B by IFA Negative (Negative)
[2019-08-04 02:22] VITALS: BP 104/75; PULSE 88; RESP 20; O2SAT 98
[2019-08-04] MEDS: lactated ringers 1,000 ML 999 ML IV (02:24)
[2019-08-04 02:50] LABS: Basophils # 0.1 10^3/uL (0.0-0.1); Basophils % 0.7 %; Eosinophils # 0.3 10^3/uL (0.0-0.8); Eosinophils % 2.8 %; Hemoglobin 12.3 g/dL (11.5-15.3); Lymphocytes # 3.1 10^3/uL (1.5-6.5); Lymphocytes % 31.9 %; Mean Corpuscular Hemoglobin 29.4 pg (28.0-34.0); Mean Corpuscular Volume 97.9 fL (81-99); Mean Platelet Volume 12.6 fL (7.4-10.4); Monocytes # 0.7 10^3/uL (0.2-0.9); Monocytes % 7.6 %; Neutrophils # 5.4 10^3/uL (1.8-8.0); Neutrophils % 55.1 %; Nucleated Red Blood Cells % 0 %; Platelet Count 143 10^3/cmm (130-400); Red Blood Count 4.19 10^6/uL (4.1-5.3); Red Cell Distribution Width 12.1 % (12.1-15.1); White Blood Count 9.8 10^3/uL (4.5-13.0)
[2019-08-04 02:59] LABS: HCG, Serum Qual Negative (Negative)
[2019-08-04 03:00] VITALS: BP 102/67; PULSE 90; RESP 22; O2SAT 98
[2019-08-04 03:00] LABS: Rapid Strep A Test Negative (Negative)
[2019-08-04 04:01] LABS: Add Urine Microscopic? YES; Bilirubin Urine Neg (NEGATIVE); Blood Urine 2+ (Negative); Glucose Urine UA Norm (Normal); Ketones Urine Negative (Negative); Leukocyte Esterase Urine 2+ (Negative); Nitrate Urine Negative (Negative); Protein Urine Neg (Negative); Urine Appearance Cloudy (CLEAR); Urine Color Yellow (Yellow); Urobilinogen Urine Norm (Negative); pH Urine 5 (5-7)
[2019-08-04 04:02] LABS: Bacteria Urine 1+; Mucus Urine 1+; Squamous Epithelial Cell Urine 15-25 (0-5); WBC Urine 15-25 /hpf (0-5)
[2019-08-04 04:15] LABS: Alanine Aminotransferase 25 U/L (0-33); Albumin Level 3.6 g/dL (3.5-5.2); Alkaline Phosphatase 73 IU/L (35-105); Anion Gap 15.2 (5-19); Aspartate Amino Transferase 22 U/L (0-32); Blood Urea Nitrogen 8 mg/dL (6-20); C Reactive Protein 57.1 mg/L (0.0-4.9); Calcium 9.4 mg/dL (8.5-10.5); Carbon Dioxide 24 mmol/L (22-29); Chloride 103 mmol/L (98-107); Glomerular Filtration Rate 91.4 mL/min (90-130); Glucose 107 mg/dL (65-115); Osmolality Calculated 282 mOsm/kg (285-295); Potassium 4.2 mmol/L (3.5-5.1); Sodium 138 mmol/L (136-145); Total Bilirubin 0.2 mg/dL (0.15-1.2); Total Protein 6.6 g/dL (6.6-8.7)
[2019-08-04] MEDS: cefTRIAXone 1,000 MG in sodium chloride 0.9% (plus) 50 ML 100 MG IV (04:40)
[2019-08-04 05:20] VITALS: BP 126/84; PULSE 76; RESP 20; O2SAT 96
[2019-08-06 11:08] LABS: Coronavirus Overall Results NOT DETECTED
== END 2019-08-04 05:20 | disposition home or self-care (01) ==
PROVIDERS: Emergency Provider Emergency Medicine; Family Provider Electrodiagnostic Medicine; PCP Electrodiagnostic Medicine
DX: N30.90 Cystitis, unspecified without hematuria (principal); R11.10 Vomiting, unspecified; F17.200 Nicotine dependence, unspecified, uncomplicated
CPT/HCPCS: 12345; 36415; 71045; 80053; 81001; 84703; 85025; 86140; 87081; 87635; 87804; 87880; 96360; 96365; 99283; A9270; J0696

== ENCOUNTER 2019-11-19 22:08 | Emergency (ER) | payer SELFPAY ==
[2019-06-18 11:23] VITALS: BP 117/71; BMI 48.3
[2019-11-19 22:22] VITALS: BP 136/83; PULSE 119; RESP 18; TEMP 36.8; O2SAT 98; BMI 49.4
--- NOTE | 2019-11-19 22:33 | XRR_ITS ---
PROCEDURE INFORMATION: Exam: XR Chest, 1 View Exam date and time: 11/19/2019 10:53 PM Age: 19 years old Clinical indication: Cough and fever; Patient HX: Chest pain when coughing, sore throat; Additional info: Fever and cough x 4 days TECHNIQUE: Imaging protocol: XR of the chest Views: 1 view. COMPARISON: CR XR chest 1V portable [id number] 08/04/2019 1:24 AM FINDINGS: Lungs: Unremarkable. No consolidation. Pleural space: Unremarkable. No pleural effusion. No pneumothorax. Heart/Mediastinum: Unremarkable. No cardiomegaly. Bones/joints: Unremarkable. XR/XR chest 1V portable [id number] IMPRESSION: No acute findings.
--- NOTE | 2019-11-19 22:34 | ED_ITS ---
HPI - URI/Sore Throat General: Chief Complaint: Upper Respiratory Infection Stated Complaint: COUGH, FEVER; PAINFUL/SOB Time Seen by Provider: 11/19/19 22:33 History of Present Illness: HPI Narrative: Patient is a 19-year-old female comes to the ED with a productive cough, fever and sore throat. Patient has a past medical history of asthma and has used her albuterol inhaler to help with symptoms. Patient says first symptom was a fever and it started 4 days ago. Patient is her highest temperature is been approximately 102 degrees. She then started developing a productive cough with white sputum. She has had a couple episodes of diarrhea. Her sore throat started after the fever and cough. She describes a sore throat is irritated from the cough. She has been taking Tylenol for fevers and her last dose was around 3 PM today. She states she has been drinking fluids and has had no episodes of nausea or vomiting. Denies any ear pain, nasal discharge or drainage, dysuria or hematuria. Associated symptoms: Reports diarrhea and fever(s); Deny abdominal pain, chills, chest pain, headache(s), nasal congestion, nausea or vomiting Review of Systems Const: Reports: fever(s); Denies: chills or fatigue Eyes: Denies: change in vision or eye discomfort ENMT: Reports: throat pain; Denies: odynophagia, nasal discharge or nasal congestion Card: Denies: chest pain, palpitations, edema, swelling of feet/ankles, dyspnea on exertion or orthopnea Resp: Reports: productive cough and wheezing; Denies: dyspnea or non-productive cough GI: Reports: diarrhea; Denies: abdominal pain, nausea, vomiting, constipation or hematochezia : Denies: flank pain, dysuria or hematuria Musc: Denies: neck pain, back pain or extremity swelling Skin/Breast: Denies: rash or new lesions Neuro: Denies: headache(s), numbness in extremities or weakness in extremities PFSH ED PFSH: Medical History Bipolar disorder, current episode manic without psychotic features, severe Borderline personality disorder Chronic post-traumatic stress disorder (PTSD) Marijuana use, episodic Nicotine dependence, cigarettes, uncomplicated Personal history of traumatic brain injury Social History Smoking and tobacco status: current every day smoker Current gender identity: Female Female Reproductive History: Date of last menstrual period: 06/08/19 Physical Exam Const: COMMON NORMALS: no acute distress, patient oriented x3 and alert GENERAL APPEARANCE: cooperative and comfortable NUTRITIONAL APPEARANCE: obese HENMT: COMMON NORMALS: normocephalic HEAD & SCALP: normocephalic MOUTH: Normal oral and palatal mucosa present THROAT: uvula midline and posterior oropharynx abnormal erythema; no exudates Neck/C-Spine: COMMON NORMALS: supple GENERAL: Yes normal visual inspection Lymph: LYMPHATIC: no lymphadenopathy noted (No cervical lymphadenopathy palpated.) Resp: COMMON NORMALS: normal respiratory effort, No retractions and No use of accessory muscles EFFORT & INSPECTION: Yes able to speak in complete sentences, No tachypneic, No labored and Yes Actively coughing productive AUSCULTATION: wheezes expiratory wheezes (Mild in the upper lobes bilaterally.) and diminished lung sounds bilateral in the upper lung simental Cardio: COMMON NORMALS: regular rate, regular rhythm, S1 normal heart sound present, S2 normal heart sound present, No gallops present (Cardio), No clicks present (Cardio), No murmurs present (Cardio) and Peripheral pulses 2+ throughout RATE: regular rate RHYTHM: regular rhythm HEART SOUNDS: S1 normal heart sound present and S2 normal heart sound present PERIPHERAL PULSES: Peripheral pulses 2+ throughout GI: COMMON NORMALS: Normal to inspection, nondistended, normoactive bowel sounds present, Soft to palpation, non-tender and no masses INSPECTION: Yes central obesity PALPATION: Yes Soft to palpation : COMMON NORMALS: Yes no CVA tenderness BLADDER/KIDNEY EXAM: Yes no CVA tenderness Back/Pelvis: COMMON NORMALS: no CVA tenderness Extremity: COMMON NORMALS: normal to inspection and no pedal edema Neuro: COMMON NORMALS: patient oriented x3 and moves all extremities SENSORIUM/ORIENTATION: Yes alert Skin: COMMON NORMALS: no rashes or lesions noted GENERAL SKIN EXAM: no rashes or lesions noted and dry skin Course Vital Signs: Vital signs: Vital Signs Temperature 98.2 F 11/19/19 22:22 Pulse Rate 99 11/20/19 00:36 Respiratory Rate 18 11/20/19 01:20 Blood Pressure 139/84 11/20/19 01:20 Pulse Oximetry 99 11/20/19 00:30 MDM - URI/Sore Throat MDM Narrative: Medical decision making narrative: Patient is a 19-year-old female comes to the ED with fever and productive cough. Patient appears well and is in no acute distress. No signs of any respiratory distress. Mild expiratory wheezing in the upper lobes bilaterally. CBC, CMP were unremarkable. Chest x-ray showed some possible signs of bronchitis but no clear infiltrate/pneumonia seen. Patient diagnosed with bronchitis and given a dose of azithromycin and dexamethasone while here in the ED. She was then sent home with a prescription for azithromycin and dexamethasone. Patient has an a lbuterol inhaler at home and will use as needed for any wheezing or shortness of breath. Follow-up with PCP in 7 to 10 days for reevaluation. Return to ED if symptoms worsen. Patient understood and agreed with plan. Lab Data: Attestation: I reviewed the patient's lab results. Labs: Lab Results 11/19/19 11/19/19 11/19/19 Range/Units 23:00 23:00 23:00 WBC 12.2 (4.5-13.0) 10^3/ uL RBC 4.46 (4.1-5.3) 10^6/u L Hgb 13.0 (11.5-15.3) g/dL Hct 41.0 (37.0-47.0) % MCV 91.9 (81-99) fL MCH 29.1 (28.0-34.0) pg MCHC 31.7 (30.0-36.0) g/dL RDW 12.4 (12.1-15.1) % Plt Count 196 (130-400) 10^3/c mm MPV 11.1 H (7.4-10.4) fL Neut % (Auto) 60.1 % Lymph % (Auto) 28.6 % [place] % (Auto) 6.0 % Eos % (Auto) 3.8 % Baso % (Auto) 0.5 % Neut # (Auto) 7.33 (1.8-8.0) 10^3/u L Lymph # (Auto) 3.5 (1.5-6.5) 10^3/u L [place] # (Auto) 0.7 (0.2-0.9) 10^3/u L Eos # (Auto) 0.5 (0.0-0.8) 10^3/u L Baso # (Auto) 0.1 (0.0-0.1) 10^3/u L Nucleated RBC % (a uto) 0 % Nucleated RBCs # 0.0 /100WBC Sodium 139 (136-145) mmol/L Potassium 4.4 (3.5-5.1) mmol/L Chloride 103 (98-107) mmol/L Carbon Dioxide 27 (22-29) mmol/L Anion Gap 13.4 (5-19) BUN 11 (6-20) mg/dL Creatinine 0.8 (0.5-0.9) mg/dL GFR Calculation 91.4 (90-130) mL/min Glucose 93 (65-115) mg/dL Calculated Osmolal ity 284 L (285-295) mOsm/k g Calcium 9.4 (8.5-10.5) mg/dL Total Bilirubin 0.2 (0.15-1.2) mg/dL AST 19 (0-32) U/L ALT 30 (0-33) U/L Alkaline Phosphata se 82 (35-105) IU/L Total Protein 6.8 (6.6-8.7) g/dL Albumin 4.2 (3.5-5.2) g/dL Globulin 2.6 (1.3-4.6) g/dL Lipase 46 (13-60) U/L HCG, Qual Negative (Negative) Influenza Type A A g (Negative) Influenza Type B A g (Negative) 11/20/19 Range/Units 00:35 WBC (4.5-13.0) 10^3/ uL RBC (4.1-5.3) 10^6/u L Hgb (11.5-15.3) g/dL Hct (37.0-47.0) % MCV (81-99) fL MCH (28.0-34.0) pg MCHC (30.0-36.0) g/dL RDW (12.1-15.1) % Plt Count (130-400) 10^3/c mm MPV (7.4-10.4) fL Neut % (Auto) % Lymph % (Auto) % [place] % (Auto) % Eos % (Auto) % Baso % (Auto) % Neut # (Auto) (1.8-8.0) 10^3/u L Lymph # (Auto) (1.5-6.5) 10^3/u L [place] # (Auto) (0.2-0.9) 10^3/u L Eos # (Auto) (0.0-0.8) 10^3/u L Baso # (Auto) (0.0-0.1) 10^3/u L Nucleated RBC % (a uto) % Nucleated RBCs # /100WBC Sodium (136-145) mmol/L Potassium (3.5-5.1) mmol/L Chloride (98-107) mmol/L Carbon Dioxide (22-29) mmol/L Anion Gap (5-19) BUN (6-20) mg/dL Creatinine (0.5-0.9) mg/dL GFR Calculation (90-130) mL/min Glucose (65-115) mg/dL Calculated Osmolal ity (285-295) mOsm/k g Calcium (8.5-10.5) mg/dL Total Bilirubin (0.15-1.2) mg/dL AST (0-32) U/L ALT (0-33) U/L Alkaline Phosphata se (35-105) IU/L Total Protein (6.6-8.7) g/dL Albumin (3.5-5.2) g/dL Globulin (1.3-4.6) g/dL Lipase (13-60) U/L HCG, Qual (Negative) Influenza Type A A g Negative (Negative) Influenza Type B A g Negative (Negative) Imaging Data^: CXR: Attestation: I personally reviewed and interpreted this imaging study as follows: My impression: Chest x-ray shows possible signs of bronchitis but no clear infiltrate identified. Discharge Plan Discharge Patient Disposition: Home, Self-Care Clinical Impression: Acute bronchitis Qualifiers: Bronchitis organism: unspecified organism Qualified Code(s): J20.9 - Acute bronchitis, unspecified Condition: Stable Prescriptions: New azithromycin 250 mg tablet 250 mg PO DAILY 4 Days Qty: 4 RF: 0 dexamethasone 2 mg tablet 2 mg PO BID 3 Days Qty: 6 RF: 0 No Action olanzapine [Zyprexa] 10 mg tablet 10 mg PO .bedtime Qty: 30 RF: 1 phenazopyridine 200 mg tablet 200 mg PO Q8H PRN (Reason: urine pain) Qty: 6 RF: 0 Benadryl 25 mg Capsule 25 mg PO PRN RF: 0 Vicks Nyquil Nighttime Relief See Rx Instructions .ROUTE .COMPLEX RF: 0 Zofran 4 mg tablet 4 mg PO Q6H PRN (Reason: nausea and vomiting) Qty: 10 RF: 0 Discharge Orders: Discharge Order (Routine); Ordered 11/20/19 Ordered By: Scott Heaton Referrals: Micky Eaton, [Primary Care Provider] - Discharge Diet: Regular Discharge Activity: Increase activity as tolerated Patient Instructions: Acute Bronchitis (ED) Activity Restrictions/Additional Instructions: Follow-up with medical provider as directed in7-10 days. Take medications as prescribed. Use your at home albuterol inhaler as needed for any shortness of breath or wheezing. Return to the ER or your medical provider if condition worsens. Please read and understand discharge instructions. If any questions, please ask. Discharge Date/Time: 11/20/19 01:16 Coding Level of Care Code ED Land Degradation Analyst for Reyna Fwtito Exam Comprehensive
[2019-11-19 23:23] LABS: Basophils # 0.1 10^3/uL (0.0-0.1); Basophils % 0.5 %; Eosinophils # 0.5 10^3/uL (0.0-0.8); Eosinophils % 3.8 %; Lymphocytes # 3.5 10^3/uL (1.5-6.5); Lymphocytes % 28.6 %; Mean Corpuscular HGB Conc 31.7 g/dL (30.0-36.0); Mean Corpuscular Hemoglobin 29.1 pg (28.0-34.0); Mean Corpuscular Volume 91.9 fL (81-99); Mean Platelet Volume 11.1 fL (7.4-10.4); Monocytes # 0.7 10^3/uL (0.2-0.9); Neutrophils # 7.33 10^3/uL (1.8-8.0); Neutrophils % 60.1 %; Nucleated Red Blood Cells % 0 %; Platelet Count 196 10^3/cmm (130-400); Red Blood Count 4.46 10^6/uL (4.1-5.3); Red Cell Distribution Width 12.4 % (12.1-15.1); White Blood Count 12.2 10^3/uL (4.5-13.0)
[2019-11-19 23:39] LABS: HCG, Serum Qual Negative (Negative)
[2019-11-20 00:14] LABS: Alanine Aminotransferase 30 U/L (0-33); Albumin Level 4.2 g/dL (3.5-5.2); Alkaline Phosphatase 82 IU/L (35-105); Anion Gap 13.4 (5-19); Aspartate Amino Transferase 19 U/L (0-32); Blood Urea Nitrogen 11 mg/dL (6-20); Calcium 9.4 mg/dL (8.5-10.5); Carbon Dioxide 27 mmol/L (22-29); Chloride 103 mmol/L (98-107); Globulin 2.6 g/dL (1.3-4.6); Glomerular Filtration Rate 91.4 mL/min (90-130); Glucose 93 mg/dL (65-115); Lipase 46 U/L (13-60); Osmolality Calculated 284 mOsm/kg (285-295); Potassium 4.4 mmol/L (3.5-5.1); Sodium 139 mmol/L (136-145); Total Bilirubin 0.2 mg/dL (0.15-1.2); Total Protein 6.8 g/dL (6.6-8.7)
[2019-11-20 00:30] VITALS: PULSE 97; RESP 17; O2SAT 99
[2019-11-20] MEDS: ipratropium-albuterol 3 mL Neb INHALATION (00:30)
[2019-11-20 00:36] VITALS: PULSE 99
[2019-11-20] MEDS: azithromycin 250 mg Tablet 500 MG PO (00:44)
[2019-11-20] MEDS: sodium chloride 0.9% 1,000 ML 999 ML IV (00:45)
[2019-11-20] MEDS: dexamethasone 4 mg Tablet 10 MG PO (00:45)
[2019-11-20] MEDS: acetaminophen 325 mg Tablet 650 MG PO (00:58)
[2019-11-20 01:11] LABS: Influenza A by IFA Negative (Negative); Influenza B by IFA Negative (Negative)
[2019-11-20 01:20] VITALS: BP 139/84; RESP 18
== END 2019-11-20 01:16 | disposition home or self-care (01) ==
PROVIDERS: Emergency Provider Physician Assistant; PCP Electrodiagnostic Medicine
DX: J20.9 Acute bronchitis, unspecified (principal); F17.210 Nicotine dependence, cigarettes, uncomplicated
CPT/HCPCS: 12345; 71045; 80053; 83690; 84703; 85025; 87804; 94640; 96360; 99283; J7030; J8540; Q0144

== ENCOUNTER 2019-11-27 13:54 | Outpatient (CLI) | payer SELFPAY ==
[2019-06-18 11:23] VITALS: BP 117/71; BMI 48.3
--- NOTE | 2019-11-27 14:05 | XR_ITS ---
WS: [id number] HAND LEFT TECHNIQUE: 3 views of the left hand CLINICAL INFORMATION: FINGER PAIN COMPARISON: None. FINDINGS: Normal metacarpals. Normal MCP joint. Metacarpal heads are normal in appearance. Normal PIP and DIP j oints. No evidence of acute fracture or dislocation. Radiocarpal joint: Normal. Carpal bones: Normal. XR/XR hand LT min 3V* [id number] IMPRESSION: Normal left hand.
== END 2019-11-27 13:55 | disposition home or self-care (01) ==
PROVIDERS: Family Provider Electrodiagnostic Medicine; PCP Electrodiagnostic Medicine; Visit Provider Electrodiagnostic Medicine
DX: M79.645 Pain in left finger(s) (principal)
CPT/HCPCS: 73130

== ENCOUNTER → 2020-02-12 08:14 | Outpatient (BNVA) | payer SELFPAY ==
[2019-06-18 11:23] VITALS: BP 117/71; BMI 48.3
== END ==
PROVIDERS: Family Provider Electrodiagnostic Medicine; PCP Electrodiagnostic Medicine; Visit Provider Nurse Practitioner Psychiatric/Mental Health
DX: F31.13 Bipolar disorder, current episode manic without psychotic features, severe (principal); F43.12 Post-traumatic stress disorder, chronic; F60.3 Borderline personality disorder; Z87.820 Personal history of traumatic brain injury; F17.210 Nicotine dependence, cigarettes, uncomplicated; F12.90 Cannabis use, unspecified, uncomplicated
CPT/HCPCS: 99213

== ENCOUNTER → 2020-03-03 14:50 | Outpatient (BNVA) | payer MEDICARE, SELFPAY ==
[2019-06-18 11:23] VITALS: BP 117/71; BMI 48.3
== END ==
PROVIDERS: Family Provider Electrodiagnostic Medicine; PCP Electrodiagnostic Medicine; Visit Provider Nurse Practitioner Family
DX: Z11.59 Encounter for screening for other viral diseases (principal); J06.9 Acute upper respiratory infection, unspecified
CPT/HCPCS: 87635

== ENCOUNTER → 2020-03-31 07:29 | Outpatient (BNVA) | payer SELFPAY ==
[2019-06-18 11:23] VITALS: BP 117/71; BMI 48.3
== END ==
PROVIDERS: Family Provider Electrodiagnostic Medicine; PCP Electrodiagnostic Medicine; Visit Provider Nurse Practitioner Psychiatric/Mental Health
DX: F31.13 Bipolar disorder, current episode manic without psychotic features, severe (principal); F43.12 Post-traumatic stress disorder, chronic; F60.3 Borderline personality disorder; F17.210 Nicotine dependence, cigarettes, uncomplicated; Z87.820 Personal history of traumatic brain injury; F12.90 Cannabis use, unspecified, uncomplicated; F50.9 Eating disorder, unspecified
CPT/HCPCS: 99214

== ENCOUNTER 2020-04-23 13:24 | Outpatient (CLI) | payer SELFPAY ==
[2019-06-18 11:23] VITALS: BP 117/71; BMI 48.3
--- NOTE | 2020-04-23 13:35 | XR_ITS ---
WS: [id number] CHEST 2 VIEWS HISTORY: CHRONIC BRONCHITIS COMPARISON: 11/19/2019 Lungs: Increasing opacification in the lingula and LEFT heart border. Otherwise lungs remain clear. N o effusions. No pneumothorax. Cardiac size: Normal. Mediastinum/Aorta: Normal mediastinum. Bones: Normal. XR/XR chest 2V* [id number] IMPRESSION: Lingular opacification may be an area of pneumonia. Recommend follow-up chest r adiograph after treatment in 2-3 weeks.
== END 2020-04-23 13:25 | disposition home or self-care (01) ==
PROVIDERS: PCP Electrodiagnostic Medicine; Visit Provider Electrodiagnostic Medicine
DX: J42 Unspecified chronic bronchitis (principal)
CPT/HCPCS: 71046

== ENCOUNTER 2020-05-11 20:44 | Emergency (ER) | payer SELFPAY ==
[2019-06-18 11:23] VITALS: BP 117/71; BMI 48.3
--- NOTE | 2020-05-11 20:47 | XR_ITS ---
WS: [id number] CHEST 2 VIEWS HISTORY: sob COMPARISON: 04/23/2020 Lungs: Clear with no abnormality. No pleural effusion or pneumothorax. Cardiac size: Normal. Mediastinum/Aorta: Normal mediastinum. Bones: Normal. XR/XR chest 2V* [id number] IMPRESSION: Normal chest.
[2020-05-11 20:51] VITALS: BP 138/93; PULSE 110; RESP 18; TEMP 36.7; O2SAT 97; BMI 47.1
[2020-05-12 01:53] VITALS: BP 126/84; PULSE 97; RESP 18; O2SAT 98
--- NOTE | 2020-05-12 01:57 | ED_ITS ---
HPI - General Adult General: Chief complaint: Shortness of Breath/Dyspnea Stated complaint: cough/sob/believes it to still be bronchitis Time Seen by Provider: 05/12/20 01:50 History of Present Illness: HPI narrative: Patient complains about ongoing bouts of bronchitis for the last 5 months. Patient said she has a cough feels short of breath at times. Patient admits that she continues to smoke and that she is aware that smoking would help with this but states that she is unable to quit she did once while taking Chantix and she was able to quit for a year and a half. MD complaint: Chronic bronchitis Onset (ago): month(s) Severity: mild Associated symptoms: Deny chest pain, dyspnea, headache(s), nausea, rash or vomiting Review of Systems Const: Denies: fever(s), chills or body aches Eyes: Denies: change in vision or blurry vision ENMT: Denies: throat pain or nasal congestion Card: Denies: chest pain or dyspnea on exertion Resp: Reports: non-productive cough; Denies: dyspnea or productive cough GI: Denies: abdominal pain, nausea or vomiting Musc: Denies: extremity pain Skin/Breast: Denies: rash Neuro: Denies: headache(s) Psych: Denies: anxiety or depression Marty/Lymph: Denies: easy bruising PFSH ED PFSH: Medical History (Updated 05/12/20 @ 01:56 by THOMPSON Keen) Bipolar disorder, current episode manic without psychotic features, severe Borderline personality disorder Chronic post-traumatic stress disorder (PTSD) Eating disorder Marijuana use, episodic Nicotine dependence, cigarettes, uncomplicated Personal history of traumatic brain injury Social History Smoking and tobacco status: current every day smoker Current gender identity: Female Female Reproductive History: Date of last menstrual period: 06/08/19 Physical Exam Const: COMMON NORMALS: no acute distress, average body habitus and patient oriented x3 HENMT: COMMON NORMALS: normocephalic HEAD & SCALP: normal to inspection and normocephalic FACE & SINUS: normal facial exam Eye: COMMON NORMALS: conjunctivae normal GENERAL EYE: appearance normal, both eyes and all related structures CONJUNCTIVA: Yes conjunctivae normal Neck/C-Spine: COMMON NORMALS: no JVD Chest: COMMONS NORMALS: normal inspection of the chest Resp: COMMON NORMALS: normal respiratory effort and clear to auscultation bilaterally AUSCULTATION: clear to auscultation bilaterally Cardio: COMMON NORMALS: no JVD, regular rate and regular rhythm RATE: regular rate RHYTHM: regular rhythm GI: COMMON NORMALS: Normal to inspection, nondistended, normoactive bowel sounds present Extremity: COMMON NORMALS: normal to inspection and full ROM Neuro: COMMON NORMALS: patient oriented x3 Course Vital Signs: Vital signs: Vital Signs Temperature 98.1 F 05/11/20 20:51 Pulse Rate 110 H 05/11/20 20:51 Respiratory Rate 18 05/11/20 20:51 Blood Pressure 138/93 05/11/20 20:51 Pulse Oximetry 97 05/11/20 20:51 Discharge Plan Discharge Patient Disposition: Home Clinical Impression: Nicotine dependence, cigarettes, uncomplicated, Chronic asthmatic bronchitis Condition: Stable Prescriptions: New Advair HFA 45-21 mcg/actuation HFA aerosol inhaler 2 inh inhalation BID Qty: 12 RF: 0 No Action olanzapine [Zyprexa] 5 mg tablet 5 mg PO .morning Qty: 30 RF: 3 olanzapine [Zyprexa] 10 mg tablet 10 mg PO .bedtime Qty: 30 RF: 3 propranolol 10 mg tablet 10 mg PO BID Qty: 30 RF: 1 Discharge Orders: Discharge ED (Routine); Ordered 05/12/20 Ordered By: Dakotah Giraldo Referrals: Micky Eaton DO [Primary Care Provider] - Discharge Diet: Usual diet Discharge Activity: Resume usual activity Patient Instructions: How to Stop Smoking (ED), Chronic Bronchitis (ED) Activity Restrictions/Additional Instructions: Follow-up with medical provider as directed. Take medications as prescribed. Return to the ER or your medical provider if condition worsens. Please read and understand discharge instructions. If any questions ask please. Stop smoking Coding Level of Care Code ED Adult Nurse Practitioner for Reyna Johns
[2020-05-12 02:22] VITALS: BP 126/84; PULSE 97; RESP 18; O2SAT 98
== END 2020-05-12 02:05 | disposition home or self-care (01) ==
PROVIDERS: Emergency Provider Nurse Practitioner Family; PCP Electrodiagnostic Medicine
DX: J44.9 Chronic obstructive pulmonary disease, unspecified (principal); F17.210 Nicotine dependence, cigarettes, uncomplicated
CPT/HCPCS: 12345; 71046; 99281; 99282

== ENCOUNTER → 2020-05-19 09:08 | Outpatient (BNVA) | payer SELFPAY ==
[2019-06-18 11:23] VITALS: BP 117/71; BMI 48.3
== END ==
PROVIDERS: PCP Electrodiagnostic Medicine; Visit Provider Social Worker
DX: F60.3 Borderline personality disorder (principal); F43.12 Post-traumatic stress disorder, chronic; F31.13 Bipolar disorder, current episode manic without psychotic features, severe; F50.9 Eating disorder, unspecified
CPT/HCPCS: 90834

== ENCOUNTER → 2020-06-02 09:45 | Outpatient (BNVA) | payer SELFPAY ==
[2019-06-18 11:23] VITALS: BP 117/71; BMI 48.3
== END ==
PROVIDERS: PCP Electrodiagnostic Medicine; Visit Provider Social Worker
DX: F60.3 Borderline personality disorder (principal); F43.12 Post-traumatic stress disorder, chronic; F31.13 Bipolar disorder, current episode manic without psychotic features, severe
CPT/HCPCS: 90834

== ENCOUNTER 2020-06-07 11:50 | Outpatient (CLI) | payer SELFPAY ==
[2019-06-18 11:23] VITALS: BP 117/71; BMI 48.3
[2020-06-07 12:54] LABS: Basophils # 0.1 10^3/uL (0.0-0.1); Basophils % 0.8 %; Eosinophils # 0.5 10^3/uL (0.0-0.8); Eosinophils % 6.9 %; Hematocrit 40.7 % (37.0-47.0); Hemoglobin 13.1 g/dL (11.5-15.3); Lymphocytes # 2.6 10^3/uL (0.8-4.8); Lymphocytes % 39.5 %; Mean Corpuscular HGB Conc 32.2 g/dL (30.0-36.0); Mean Corpuscular Hemoglobin 29.3 pg (28.0-34.0); Mean Corpuscular Volume 91.1 fL (81-99); Mean Platelet Volume 10.9 fL (7.4-10.4); Monocytes # 0.5 10^3/uL (0.2-0.9); Monocytes % 7.4 %; Neutrophils # 2.94 10^3/uL (1.8-7.7); Neutrophils % 44.2 %; Nucleated Red Blood Cells % 0 %; Platelet Count 177 10^3/cmm (130-400); Red Blood Count 4.47 10^6/uL (4.1-5.3); Red Cell Distribution Width 12.5 % (12.1-15.1); White Blood Count 6.6 10^3/uL (4.0-10.0)
[2020-06-08 15:03] LABS: Alpha 1 Antitrypsin 147 mg/dL (83-199)
[2020-06-08 17:03] LABS: Alternaria Alternata (M6) Ige <0.10 kU/L; Alternaria Class 0; Cat Dander (E1) Ige <0.10 kU/L; Cat Dander Class 0; Common Ragweed (Short) (W1) Ig <0.10 kU/L; D. Farinae Class 0; Dermatophagoides Class 0; Dermatophagoides Farinae (D2) <0.10 kU/L; Dermatophagoides Pteronyssinus <0.10 kU/L; Dog Dander (E5) Ige 0.15 kU/L; Dog Dander Class 0/1; Elm (T8) Ige <0.10 kU/L; Elm Class 0; English Plantain (W9) Ige <0.10 kU/L; English Plantain Class 0; House Dust (Greer) (H1) Ige <0.10 kU/L; House Dust (Hollister- Stier) <0.10 kU/L; House Dust Class 0; Immunoglobulin E 187 kU/L (<OR=114); Immunoglobulin E 188 kU/L (<OR=114); Lamb'S Quarters (Goose Foot) 0.13 kU/L; Lamb'S Quarters Class 0/1; Maple (Box Elder) (T1) Ige <0.10 kU/L; Maple Class 0; Mucor Racemosus Class 0; Oak (T7) Ige <0.10 kU/L; Oak Class 0; Penicillium Class 0; Penicillium Notatum (M1) Ige <0.10 kU/L; Ragweeed Class 0; Rough Marsh Elder (W16) Ige <0.10 kU/L; Rough Marsh Elder Class 0
[2020-06-09 18:09] LABS: Aspergillus Fumigatus, Igg Ab, 78.9 mg/L (<=102)
[2020-06-11 15:38] LABS: Bermuda Class 0; Bermuda Grass (G2) Ige <0.10 kU/L; Johnson Grass (G10) Ige <0.10 kU/L; Johnson Grass Cl 0; June Grass Class 0; June Grass(Kentucky Blue) (G8) <0.10 kU/L; Meadow Fescue (G4) Ige <0.10 kU/L; Meadow Fescue Class 0; Orchard Grass (Cocksfoot) (G3) <0.10 kU/L; Perennial Rye Grass (G5) Ige <0.10 kU/L; Perennial Rye Grass Class 0; Sweet Vernal Class 0; Sweet Vernal Grass (G1) Ige <0.10 kU/L; Timothy Grass (G6) Ige <0.10 kU/L; Timothy Grass Class 0
== END 2020-06-07 11:51 | disposition home or self-care (01) ==
PROVIDERS: PCP Electrodiagnostic Medicine; Visit Provider Internal Medicine Pulmonary Disease
DX: J45.909 Unspecified asthma, uncomplicated (principal)
CPT/HCPCS: 36415; 82103; 82785; 85025; 86003

== ENCOUNTER → 2020-06-10 10:28 | Outpatient (BNVA) | payer SELFPAY ==
[2020-06-07 14:24] VITALS: BP 117/71; BMI 48.3
== END ==
PROVIDERS: PCP Electrodiagnostic Medicine; Visit Provider Nurse Practitioner Psychiatric/Mental Health
DX: F31.13 Bipolar disorder, current episode manic without psychotic features, severe (principal); F43.12 Post-traumatic stress disorder, chronic; F60.3 Borderline personality disorder; Z87.820 Personal history of traumatic brain injury; F17.210 Nicotine dependence, cigarettes, uncomplicated; F12.90 Cannabis use, unspecified, uncomplicated; Z79.899 Other long term (current) drug therapy; F50.81 Binge eating disorder
CPT/HCPCS: 99214

== ENCOUNTER → 2020-06-12 15:42 | Outpatient (BNVA) | payer OTHER, SELFPAY ==
[2020-06-07 14:24] VITALS: BP 117/71; BMI 48.3
== END ==
PROVIDERS: PCP Electrodiagnostic Medicine; Visit Provider Emergency Medicine
DX: Z01.812 Encounter for preprocedural laboratory examination (principal); R06.02 Shortness of breath
CPT/HCPCS: 87635

== ENCOUNTER → 2020-06-30 08:30 | Outpatient (BNVA) | payer MEDICARE, SELFPAY ==
[2020-06-07 14:24] VITALS: BP 117/71; BMI 48.3
== END ==
PROVIDERS: PCP Electrodiagnostic Medicine; Visit Provider Social Worker
DX: F32.9 Major depressive disorder, single episode, unspecified (principal); F60.3 Borderline personality disorder; F43.12 Post-traumatic stress disorder, chronic; F31.13 Bipolar disorder, current episode manic without psychotic features, severe; F50.81 Binge eating disorder
CPT/HCPCS: 90832

== ENCOUNTER → 2020-07-01 11:32 | Outpatient (BNVA) | payer MEDICARE, SELFPAY ==
[2020-06-07 14:24] VITALS: BP 117/71; BMI 48.3
== END ==
PROVIDERS: PCP Electrodiagnostic Medicine; Visit Provider Internal Medicine Pulmonary Disease
DX: Z01.812 Encounter for preprocedural laboratory examination (principal); R06.00 Dyspnea, unspecified
CPT/HCPCS: 87635

== ENCOUNTER 2020-07-05 08:04 | Outpatient (CLI) | payer MEDICARE, SELFPAY ==
[2019-06-18 11:23] VITALS: BP 117/71; BMI 48.3
[2020-06-07 14:24] VITALS: BP 117/71; BMI 48.3
--- NOTE | 2020-07-05 13:23 | PFTS_ITS ---
Date of Study:07/05/20 Date of Dictation: 07/07/2020 MECHANICS: Prebronchodilator forced vital capacity (FVC) is normal. Prebronchodilator forced expiratory volume in one second (FEV1) is normal. Prebronchodilator FEV1/FVC is normal. No post bronchodilator study performed. FLOW VOLUME LOOP: normal. . LUNG VOLUMES: Total lung capacity (TLC) is normal. Residual volume (RV) is normal DIFFUSING CAPACITY FOR CARBON MONOXIDE: Normal . INTERPRETATION: The PFTs are normal with normal gas transfer. No post bronchodilator study performed. Please correlate clinically MTDD
== END 2020-07-05 08:05 | disposition home or self-care (01) ==
LOC: RT 08:05
PROVIDERS: PCP Electrodiagnostic Medicine; Visit Provider Internal Medicine Pulmonary Disease
DX: J45.909 Unspecified asthma, uncomplicated (principal)
CPT/HCPCS: 94010; 94726; 94729

== ENCOUNTER → 2020-07-13 14:19 | Outpatient (BNVA) | payer MEDICARE, SELFPAY ==
[2020-06-07 14:24] VITALS: BP 117/71; BMI 48.3
== END ==
PROVIDERS: PCP Electrodiagnostic Medicine; Visit Provider Nurse Practitioner Family
DX: Z20.828 Contact with and (suspected) exposure to other viral communicable diseases (principal)
CPT/HCPCS: 87635

== ENCOUNTER → 2020-07-22 08:12 | Outpatient (BNVA) | payer SELFPAY ==
[2020-06-07 14:24] VITALS: BP 117/71; BMI 48.3
== END ==
PROVIDERS: PCP Electrodiagnostic Medicine; Visit Provider Nurse Practitioner Psychiatric/Mental Health
DX: F60.3 Borderline personality disorder (principal); F31.13 Bipolar disorder, current episode manic without psychotic features, severe; F43.12 Post-traumatic stress disorder, chronic; Z87.820 Personal history of traumatic brain injury; F17.210 Nicotine dependence, cigarettes, uncomplicated; F12.90 Cannabis use, unspecified, uncomplicated; F50.81 Binge eating disorder
CPT/HCPCS: 99214

== ENCOUNTER → 2020-08-04 08:50 | Outpatient (BNVA) | payer SELFPAY ==
[2020-06-07 14:24] VITALS: BP 117/71; BMI 48.3
== END ==
PROVIDERS: PCP Electrodiagnostic Medicine; Visit Provider Social Worker
DX: F60.3 Borderline personality disorder (principal); F43.12 Post-traumatic stress disorder, chronic; F31.13 Bipolar disorder, current episode manic without psychotic features, severe
CPT/HCPCS: 90832

== ENCOUNTER → 2020-08-19 08:36 | Outpatient (BNVA) | payer MEDICARE, SELFPAY ==
[2020-06-07 14:24] VITALS: BP 117/71; BMI 48.3
== END ==
PROVIDERS: PCP Electrodiagnostic Medicine; Visit Provider Nurse Practitioner Psychiatric/Mental Health
DX: F60.3 Borderline personality disorder (principal); F31.13 Bipolar disorder, current episode manic without psychotic features, severe; F43.12 Post-traumatic stress disorder, chronic; Z87.820 Personal history of traumatic brain injury; F17.210 Nicotine dependence, cigarettes, uncomplicated; F12.90 Cannabis use, unspecified, uncomplicated; F50.81 Binge eating disorder
CPT/HCPCS: 99214

== ENCOUNTER → 2020-09-01 09:45 | Outpatient (BNVA) | payer SELFPAY ==
[2020-06-07 14:24] VITALS: BP 117/71; BMI 48.3
== END ==
PROVIDERS: PCP Electrodiagnostic Medicine; Visit Provider Social Worker
DX: F60.3 Borderline personality disorder (principal); F31.13 Bipolar disorder, current episode manic without psychotic features, severe; F43.12 Post-traumatic stress disorder, chronic
CPT/HCPCS: 90834

== ENCOUNTER → 2020-09-13 11:07 | Outpatient (BNVA) | payer SELFPAY ==
[2020-06-07 14:24] VITALS: BP 117/71; BMI 48.3
== END ==
PROVIDERS: PCP Electrodiagnostic Medicine; Visit Provider Social Worker
DX: F60.3 Borderline personality disorder (principal); F31.13 Bipolar disorder, current episode manic without psychotic features, severe; F43.12 Post-traumatic stress disorder, chronic
CPT/HCPCS: 90832

== ENCOUNTER → 2020-09-30 08:19 | Outpatient (BNVA) | payer SELFPAY ==
[2020-06-07 14:24] VITALS: BP 117/71; BMI 48.3
== END ==
PROVIDERS: PCP Electrodiagnostic Medicine; Visit Provider Nurse Practitioner Psychiatric/Mental Health
DX: F31.13 Bipolar disorder, current episode manic without psychotic features, severe (principal); F60.3 Borderline personality disorder; F43.12 Post-traumatic stress disorder, chronic; Z87.820 Personal history of traumatic brain injury; F17.210 Nicotine dependence, cigarettes, uncomplicated; Z79.899 Other long term (current) drug therapy; F12.90 Cannabis use, unspecified, uncomplicated; F50.81 Binge eating disorder
CPT/HCPCS: 99214

== ENCOUNTER → 2020-10-16 14:18 | Outpatient (BNVA) | payer SELFPAY ==
[2020-06-07 14:24] VITALS: BP 117/71; BMI 48.3
== END ==
PROVIDERS: PCP Electrodiagnostic Medicine; Visit Provider Nurse Practitioner Family
DX: B37.3 Candidiasis of vulva and vagina (principal); N39.0 Urinary tract infection, site not specified
CPT/HCPCS: 81000

== ENCOUNTER 2020-10-19 11:56 | Emergency (ER) | payer SELFPAY ==
[2020-06-07 14:24] VITALS: BP 117/71; BMI 48.3
[2020-10-19 12:03] VITALS: BP 157/107; PULSE 93; RESP 18; TEMP 36.9; O2SAT 97; BMI 48.6
--- NOTE | 2020-10-19 12:36 | W.ED.FEMALGU ---
Documented by User: Mahad Everett DO 10/21/20 07:16 HPI - Female Genitourinary General: Chief complaint: Urogenital-Female Stated complaint: UTI, JOINT PAIN, GEN WEAKNESS Time Seen by Provider: 10/19/20 12:03 History of Present Illness: HPI Narrative: 20-year-old female presents emergency room complaining of recurrent UTIs. States she has had this intermittently since last December. She is concerned she may have an STD. She said several course of antibiotics and is currently on nitrofurantoin as well as fluconazole she denies any vaginal discharge. Has not had any new partners since last December. MD elicited complaint: dysuria and pelvic pain Pertinent past history: recurrent UTIs Quality of pain: cramping Consistency: intermittent Vaginal discharge: none Vaginal bleeding: none Urinary symptoms: Difficulty Urinating and Dysuria Exacerbating factors: none Relieving factors: none Associated symptoms: Deny abdominal pain or nausea Treatment prior to arrival: other (Antibiotics) Review of Systems Const: Denies: fever(s), chills, body aches, change in appetite, fatigue or malaise ENMT: Denies: throat pain, ear or mastoid pain, nasal discharge or nasal congestion Card: Denies: chest pain, edema, dyspnea on exertion or orthopnea Resp: Denies: dyspnea, productive cough or non-productive cough GI: Denies: abdominal pain, nausea, vomiting, hematemesis, coffee ground emesis, diarrhea, constipation, bloating, hematochezia or melena : Denies: flank pain, difficulty voiding, dysuria, urinary frequency or urinary urgency Skin/Breast: Denies: rash or pruritus PFSH ED PFSH: Medical History Bipolar disorder, current episode manic without psychotic features, severe Borderline personality disorder Chronic post-traumatic stress disorder (PTSD) Eating disorder Marijuana use, episodic Nicotine dependence, cigarettes, uncomplicated Personal history of traumatic brain injury Social History Smoking and tobacco status: current every day smoker cigarettes Packs smoked per day: 0.25 Years cigarettes smoked: 6 and e-cigarettes E-Cigarette Details: vaporizer device and with nicotine Quit status (tobacco): considering quitting Second hand smoke exposure: Yes Smoking risk assessment/counseling performed?: Yes Alcohol intake: former Desire information about alcohol rehabilitation?: No Counseling given: No Desire information about substance/drug rehabilitation?: No Lives independently: Yes Household members: family Housing: House Marital status: Single service: No Current occupational status: employed Pets and animals: Yes History of recent travel: No Current gender identity: Female Physical Exam Const: COMMON NORMALS: no acute distress GENERAL APPEARANCE: cooperative and comfortable ORIENTATION/CONSCIOUSNESS: Yes awake, Yes oriented to person, Yes oriented to place and Yes oriented to time HENMT: COMMON NORMALS: normocephalic, atraumatic, hearing grossly normal bilaterally and external ears normal HEAD & SCALP: normocephalic and atraumatic EXTERNAL EAR: Yes external ears normal Neck/C-Spine: COMMON NORMALS: no JVD Resp: COMMON NORMALS: normal respiratory effort, No retractions, No use of accessory muscles and clear to auscultation bilaterally AUSCULTATION: clear to auscultation bilaterally Cardio: COMMON NORMALS: no JVD, regular rate, regular rhythm and No murmurs present (Cardio) RATE: regular rate RHYTHM: regular rhythm GI: COMMON NORMALS: Soft to palpation and No hepatosplenomegaly present AUSCULTATION: Yes normoactive bowel sounds PALPATION: Yes Soft to palpation, No Tenderness to palpation present (GI), No Guarding due to palpation present (GI) and Yes No hepatosplenomegaly present Extremity: COMMON NORMALS: normal to inspection, capillary refill normal, no clubbing, cyanosis or edema, no calf tenderness and no pedal edema Neuro: SENSORIUM/ORIENTATION: Yes oriented to person, Yes oriented to place and Yes oriented to time Skin: COMMON NORMALS: no rashes or lesions noted GENERAL SKIN EXAM: no rashes or lesions noted Course Vital Signs: Vital signs: Vital Signs Temperature 98.4 F 10/19/20 12:03 Pulse Rate 89 10/19/20 15:13 Respiratory Rate 18 10/19/20 15:13 Blood Pressure 152/97 10/19/20 15:13 Pulse Oximetry 98 10/19/20 15:13 MDM - Female MDM Narrative: Medical decision making narrative: Patient treated prophylactically for PID negative patient Orders written. No cervical motion tenderness reported on exam. Changed to Cipro stop Macrodantin follow-up with primary care. Lab Data: Labs: Lab Results 10/19/20 10/19/20 10/19/20 Range/Units 12:49 13:02 13:02 WBC 9.9 (4.0-10.0) 10^3/ uL RBC 4.72 (4.1-5.3) 10^6/u L Hgb 13.7 (11.5-15.3) g/dL Hct 42.5 (37.0-47.0) % MCV 90.0 (81-99) fL MCH 29.0 (28.0-34.0) pg MCHC 32.2 (30.0-36.0) g/dL RDW 12.3 (12.1-15.1) % Plt Count 225 (130-400) 10^3/c mm MPV 10.8 H (7.4-10.4) fL Neut % (Auto) 55.8 % Lymph % (Auto) 31.9 % Swift % (Auto) 5.4 % Eos % (Auto) 4.1 % Baso % (Auto) 0.9 % Neut # (Auto) 5.50 (1.8-7.7) 10^3/u L Lymph # (Auto) 3.2 (0.8-4.8) 10^3/u L Swift # (Auto) 0.5 (0.2-0.9) 10^3/u L Eos # (Auto) 0.4 (0.0-0.8) 10^3/u L Baso # (Auto) 0.1 (0.0-0.1) 10^3/u L Nucleated RBC % (a uto) 0 % Nucleated RBCs # 0.0 /100WBC Sodium 139 (136-145) mmol/L Potassium 4.2 (3.5-5.1) mmol/L Chloride 107 (98-107) mmol/L Carbon Dioxide 20 L (22-29) mmol/L Anion Gap 16.2 (5-19) BUN 7 (6-20) mg/dL Creatinine 0.8 (0.5-0.9) mg/dL GFR Calculation 90.5 (90-130) mL/min Glucose 105 (65-115) mg/dL Calculated Osmolal ity 286 (285-295) mOsm/k g Calcium 9.0 (8.5-10.5) mg/dL HCG, Qual (Negative) Urine Color Yellow (Yellow) Urine Appearance Clear (CLEAR) Urine pH 5 (5-7) Ur Specific Gravit y 1.020 (1.005-1.030) Urine Protein Neg (Negative) Urine Glucose (UA) Norm (Normal) Urine Ketones Negative (Negative) Urine Blood Trace H (Negative) Urine Nitrate Negative (Negative) Urine Bilirubin Neg (Negative) Urine Urobilinogen 1 H (Negative) mg/dL Ur Leukocyte Ghada ase 2+ H (Negative) Urine RBC 15-25 H (0-2) /hpf Urine WBC 25-40 H (0-5) /hpf Ur Squamous Epith Cells 5-10 H (0-5) /hpf Amorphous Sediment Not Reportable Urine Bacteria 1+ H (NONE) /hpf 10/19/20 Range/Units 13:20 WBC (4.0-10.0) 10^3/ uL RBC (4.1-5.3) 10^6/u L Hgb (11.5-15.3) g/dL Hct (37.0-47.0) % MCV (81-99) fL MCH (28.0-34.0) pg MCHC (30.0-36.0) g/dL RDW (12.1-15.1) % Plt Count (130-400) 10^3/c mm MPV (7.4-10.4) fL Neut % (Auto) % Lymph % (Auto) % Swift % (Auto) % Eos % (Auto) % Baso % (Auto) % Neut # (Auto) (1.8-7.7) 10^3/u L Lymph # (Auto) (0.8-4.8) 10^3/u L Swift # (Auto) (0.2-0.9) 10^3/u L Eos # (Auto) (0.0-0.8) 10^3/u L Baso # (Auto) (0.0-0.1) 10^3/u L Nucleated RBC % (a uto) % Nucleated RBCs # /100WBC Sodium (136-145) mmol/L Potassium (3.5-5.1) mmol/L Chloride (98-107) mmol/L Carbon Dioxide (22-29) mmol/L Anion Gap (5-19) BUN (6-20) mg/dL Creatinine (0.5-0.9) mg/dL GFR Calculation (90-130) mL/min Glucose (65-115) mg/dL Calculated Osmolal ity (285-295) mOsm/k g Calcium (8.5-10.5) mg/dL HCG, Qual Negative (Negative) Urine Color (Yellow) Urine Appearance (CLEAR) Urine pH (5-7) Ur Specific Gravit y (1.005-1.030) Urine Protein (Negative) Urine Glucose (UA) (Normal) Urine Ketones (Negative) Urine Blood (Negative) Urine Nitrate (Negative) Urine Bilirubin (Negative) Urine Urobilinogen (Negative) mg/dL Ur Leukocyte Ghada ase (Negative) Urine RBC (0-2) /hpf Urine WBC (0-5) /hpf Ur Squamous Epith Cells (0-5) /hpf Amorphous Sediment Urine Bacteria (NONE) /hpf Discharge Plan Discharge Patient Disposition: Home Clinical Impression: Cystitis Condition: Stable Prescriptions: New Cipro 500 mg tablet 500 mg PO BID Qty: 14 RF: 0 doxycycline hyclate 100 mg capsule 100 mg PO BID 14 Days Qty: 28 RF: 0 metronidazole 500 mg tablet 500 mg PO BID 14 Days Qty: 28 RF: 0 Discontinued nitrofurantoin monohyd/m-cryst [Macrobid] 100 mg capsule 100 mg PO Q12H 5 Days Qty: 10 RF: 0 No Action fluconazole [Diflucan] 150 mg tablet 150 mg PO Q3D Qty: 2 RF: 0 albuterol sulfate [Ventolin HFA] 90 mcg/actuation HFA aerosol inhaler 2 puff inhalation Q6H PRN (Reason: Shortness Of Breath) RF: 0 ipratropium-albuterol 0.5 mg-3 mg(2.5 mg base)/3 mL solution for nebulization 3 ml inhalation Q4H PRN (Reason: wheezing) Qty: 120 RF: 3 loratadine [Claritin] 10 mg tablet 10 mg PO DAILY RF: 0 diphenhydramine HCl [Benadryl] 25 mg capsule 25 mg PO TID PRN (Reason: allergy symptoms) RF: 0 olanzapine 10 mg tablet 10 mg PO BEDTIME RF: 0 ibuprofen 200 mg Tablet 200 - 400 mg PO Q6H PRN (Reason: FEVER/PAIN) RF: 0 Advair Diskus 250-50 mcg/dose blister with device 1 inh inhalation BID@0900,2000 RF: 0 montelukast 10 mg tablet 10 mg PO DAILY@0900 RF: 0 Wellbutrin SR 200 mg tablet sustained-release 12 hr 200 mg PO DAILY@0900 RF: 0 Topamax 50 mg tablet 50 mg PO BID@0900,2100 RF: 0 Discharge Orders: Discharge ED (Routine); Ordered 10/19/20 Ordered By: Mahad Everett Referrals: Micky Eaton DO [Primary Care Provider] - Discharge Diet: Usual diet Discharge Activity: Resume usual activity Patient Instructions: Opioid Safety Coding Level of Care Code ED 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 Exam Problem Focused Documented by User: SUMA Bhatti 10/19/20 13:52 HPI - Female Genitourinary General: Chief complaint: Urogenital-Female Stated complaint: UTI, JOINT PAIN, GEN WEAKNESS Time Seen by Provider: 10/19/20 12:03 History of Present Illness: Associated symptoms: Deny vaginal bleeding [facility] ED PFSH: Medical History Bipolar disorder, current episode manic without psychotic features, severe Borderline personality disorder Chronic post-traumatic stress disorder (PTSD) Eating disorder Marijuana use, episodic Nicotine dependence, cigarettes, uncomplicated Personal history of traumatic brain injury Social History Smoking and tobacco status: current every day smoker cigarettes Packs smoked per day: 0.25 Years cigarettes smoked: 6 and e-cigarettes E-Cigarette Details: vaporizer device and with nicotine Quit status (tobacco): considering quitting Second hand smoke exposure: Yes Smoking risk assessment/counseling performed?: Yes Alcohol intake: former Desire information about alcohol rehabilitation?: No Counseling given: No Desire information about substance/drug rehabilitation?: No Lives independently: Yes Household members: family Housing: House Marital status: Single service: No Current occupational status: employed Pets and animals: Yes History of recent travel: No Current gender identity: Female Physical Exam : EXTERNAL FEMALE EXAM: Yes external swelling SPECULUM EXAM - VAGINA: No vaginal bleeding, Yes swelling and Yes tenderness Lateral vaginal tenderness details: bilateral SPECULUM EXAM - CERVIX: Yes Cervical os open, No Cervical bleeding, Yes Abnormal cervical discharge present white and Yes Cervical tenderness present BIMANUAL EXAM - VAGINA & UTERUS: Yes Cervical tenderness present OB/EXTERNAL & SPECULUM: Cervical os open; No vaginal bleeding OTHER: I collected a wet prep and it was sent off to lab. Course Vital Signs: Vital signs: Vital Signs Temperature 98.4 F 10/19/20 12:03 Pulse Rate 89 10/19/20 15:13 Respiratory Rate 18 10/19/20 15:13 Blood Pressure 152/97 10/19/20 15:13 Pulse Oximetry 98 10/19/20 15:13 MDM - Female MDM Narrative: Medical decision making narrative: Dr. Everett was busy and had to do a lumbar puncture on the patient so he contacted me and asked if I could come in and do the pelvic exam and collect the wet prep. I performed the pelvic and my exam findings are in the physical exam section. I was not involved in any other aspect of this patient's care. Lab Data: Attestation: I reviewed the patient's lab results. Labs: Lab Results 10/19/20 10/19/20 10/19/20 Range/Units 12:49 13:02 13:02 WBC 9.9 (4.0-10.0) 10^3/ uL RBC 4.72 (4.1-5.3) 10^6/u L Hgb 13.7 (11.5-15.3) g/dL Hct 42.5 (37.0-47.0) % MCV 90.0 (81-99) fL MCH 29.0 (28.0-34.0) pg MCHC 32.2 (30.0-36.0) g/dL RDW 12.3 (12.1-15.1) % Plt Count 225 (130-400) 10^3/c mm MPV 10.8 H (7.4-10.4) fL Neut % (Auto) 55.8 % Lymph % (Auto) 31.9 % Swift % (Auto) 5.4 % Eos % (Auto) 4.1 % Baso % (Auto) 0.9 % Neut # (Auto) 5.50 (1.8-7.7) 10^3/u L Lymph # (Auto) 3.2 (0.8-4.8) 10^3/u L Swift # (Auto) 0.5 (0.2-0.9) 10^3/u L Eos # (Auto) 0.4 (0.0-0.8) 10^3/u L Baso # (Auto) 0.1 (0.0-0.1) 10^3/u L Nucleated RBC % (a uto) 0 % Nucleated RBCs # 0.0 /100WBC Sodium 139 (136-145) mmol/L Potassium 4.2 (3.5-5.1) mmol/L Chloride 107 (98-107) mmol/L Carbon Dioxide 20 L (22-29) mmol/L Anion Gap 16.2 (5-19) BUN 7 (6-20) mg/dL Creatinine 0.8 (0.5-0.9) mg/dL GFR Calculation 90.5 (90-130) mL/min Glucose 105 (65-115) mg/dL Calculated Osmolal ity 286 (285-295) mOsm/k g Calcium 9.0 (8.5-10.5) mg/dL HCG, Qual (Negative) Urine Color Yellow (Yellow) Urine Appearance Clear (CLEAR) Urine pH 5 (5-7) Ur Specific Gravit y 1.020 (1.005-1.030) Urine Protein Neg (Negative) Urine Glucose (UA) Norm (Normal) Urine Ketones Negative (Negative) Urine Blood Trace H (Negative) Urine Nitrate Negative (Negative) Urine Bilirubin Neg (Negative) Urine Urobilinogen 1 H (Negative) mg/dL Ur Leukocyte Ghada ase 2+ H (Negative) Urine RBC 15-25 H (0-2) /hpf Urine WBC 25-40 H (0-5) /hpf Ur Squamous Epith Cells 5-10 H (0-5) /hpf Amorphous Sediment Not Reportable Urine Bacteria 1+ H (NONE) /hpf 10/19/20 Range/Units 13:20 WBC (4.0-10.0) 10^3/ uL RBC (4.1-5.3) 10^6/u L Hgb (11.5-15.3) g/dL Hct (37.0-47.0) % MCV (81-99) fL MCH (28.0-34.0) pg MCHC (30.0-36.0) g/dL RDW (12.1-15.1) % Plt Count (130-400) 10^3/c mm MPV (7.4-10.4) fL Neut % (Auto) % Lymph % (Auto) % Swift % (Auto) % Eos % (Auto) % Baso % (Auto) % Neut # (Auto) (1.8-7.7) 10^3/u L Lymph # (Auto) (0.8-4.8) 10^3/u L Swift # (Auto) (0.2-0.9) 10^3/u L Eos # (Auto) (0.0-0.8) 10^3/u L Baso # (Auto) (0.0-0.1) 10^3/u L Nucleated RBC % (a uto) % Nucleated RBCs # /100WBC Sodium (136-145) mmol/L Potassium (3.5-5.1) mmol/L Chloride (98-107) mmol/L Carbon Dioxide (22-29) mmol/L Anion Gap (5-19) BUN (6-20) mg/dL Creatinine (0.5-0.9) mg/dL GFR Calculation (90-130) mL/min Glucose (65-115) mg/dL Calculated Osmolal ity (285-295) mOsm/k g Calcium (8.5-10.5) mg/dL HCG, Qual Negative (Negative) Urine Color (Yellow) Urine Appearance (CLEAR) Urine pH (5-7) Ur Specific Gravit y (1.005-1.030) Urine Protein (Negative) Urine Glucose (UA) (Normal) Urine Ketones (Negative) Urine Blood (Negative) Urine Nitrate (Negative) Urine Bilirubin (Negative) Urine Urobilinogen (Negative) mg/dL Ur Leukocyte Ghada ase (Negative) Urine RBC (0-2) /hpf Urine WBC (0-5) /hpf Ur Squamous Epith Cells (0-5) /hpf Amorphous Sediment Urine Bacteria (NONE) /hpf Discharge Plan Discharge Patient Disposition: Home Clinical Impression: Cystitis Condition: Stable Prescriptions: New Cipro 500 mg tablet 500 mg PO BID Qty: 14 RF: 0 doxycycline hyclate 100 mg capsule 100 mg PO BID 14 Days Qty: 28 RF: 0 metronidazole 500 mg tablet 500 mg PO BID 14 Days Qty: 28 RF: 0 Discontinued nitrofurantoin monohyd/m-cryst [Macrobid] 100 mg capsule 100 mg PO Q12H 5 Days Qty: 10 RF: 0 No Action fluconazole [Diflucan] 150 mg tablet 150 mg PO Q3D Qty: 2 RF: 0 albuterol sulfate [Ventolin HFA] 90 mcg/actuation HFA aerosol inhaler 2 puff inhalation Q6H PRN (Reason: Shortness Of Breath) RF: 0 ipratropium-albuterol 0.5 mg-3 mg(2.5 mg base)/3 mL solution for nebulization 3 ml inhalation Q4H PRN (Reason: wheezing) Qty: 120 RF: 3 loratadine [Claritin] 10 mg tablet 10 mg PO DAILY RF: 0 diphenhydramine HCl [Benadryl] 25 mg capsule 25 mg PO TID PRN (Reason: allergy symptoms) RF: 0 olanzapine 10 mg tablet 10 mg PO BEDTIME RF: 0 ibuprofen 200 mg Tablet 200 - 400 mg PO Q6H PRN (Reason: FEVER/PAIN) RF: 0 Advair Diskus 250-50 mcg/dose blister with device 1 inh inhalation BID@0900,2000 RF: 0 montelukast 10 mg tablet 10 mg PO DAILY@0900 RF: 0 Wellbutrin SR 200 mg tablet sustained-release 12 hr 200 mg PO DAILY@0900 RF: 0 Topamax 50 mg tablet 50 mg PO BID@0900,2100 RF: 0 Discharge Orders: Discharge ED (Routine); Ordered 10/19/20 Ordered By: Mahad Everett Referrals: Micky Eaton DO [Primary Care Provider] - Discharge Diet: Usual diet Discharge Activity: Resume usual activity Patient Instructions: Opioid Safety Coding Level of Care Code ED 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
[2020-10-19 12:59] LABS: Add Urine Microscopic? YES; Bilirubin Urine Neg (Negative); Glucose Urine UA Norm (Normal); Ketones Urine Negative (Negative); Leukocyte Esterase Urine 2+ (Negative); Nitrate Urine Negative (Negative); Protein Urine Neg (Negative); Urine Appearance Clear (CLEAR); Urine Color Yellow (Yellow); Urobilinogen Urine 1 mg/dL (Negative); pH Urine 5 (5-7)
[2020-10-19 13:02] LABS: Add Urine Culture? Yes; Bacteria Urine 1+ /hpf; Blood Urine Trace (Negative); RBC Urine 15-25 /hpf (0-2); WBC Urine 25-40 /hpf (0-5)
[2020-10-19 13:14] LABS: Basophils # 0.1 10^3/uL (0.0-0.1); Basophils % 0.9 %; Eosinophils # 0.4 10^3/uL (0.0-0.8); Eosinophils % 4.1 %; Hematocrit 42.5 % (37.0-47.0); Hemoglobin 13.7 g/dL (11.5-15.3); Lymphocytes # 3.2 10^3/uL (0.8-4.8); Lymphocytes % 31.9 %; Mean Corpuscular HGB Conc 32.2 g/dL (30.0-36.0); Mean Platelet Volume 10.8 fL (7.4-10.4); Monocytes # 0.5 10^3/uL (0.2-0.9); Monocytes % 5.4 %; Neutrophils % 55.8 %; Nucleated Red Blood Cells % 0 %; Platelet Count 225 10^3/cmm (130-400); Red Blood Count 4.72 10^6/uL (4.1-5.3); Red Cell Distribution Width 12.3 % (12.1-15.1); White Blood Count 9.9 10^3/uL (4.0-10.0)
[2020-10-19 13:30] LABS: Anion Gap 16.2 (5-19); Blood Urea Nitrogen 7 mg/dL (6-20); Carbon Dioxide 20 mmol/L (22-29); Chloride 107 mmol/L (98-107); Glomerular Filtration Rate 90.5 mL/min (90-130); Glucose 105 mg/dL (65-115); Osmolality Calculated 286 mOsm/kg (285-295); Potassium 4.2 mmol/L (3.5-5.1); Sodium 139 mmol/L (136-145)
[2020-10-19 13:31] LABS: HCG, Serum Qual Negative (Negative)
[2020-10-19 15:13] VITALS: BP 152/97; PULSE 89; RESP 18; O2SAT 98
== END 2020-10-19 15:14 | disposition home or self-care (01) ==
PROVIDERS: Emergency Provider Family Medicine; PCP Electrodiagnostic Medicine
DX: N30.90 Cystitis, unspecified without hematuria (principal); F17.210 Nicotine dependence, cigarettes, uncomplicated
CPT/HCPCS: 80048; 81001; 84703; 85025; 87086; 87210; 87491; 87591; 96372; 99283; J0696

== ENCOUNTER → 2020-10-25 14:45 | Outpatient (BNVA) | payer SELFPAY ==
[2020-06-07 14:24] VITALS: BP 117/71; BMI 48.3
== END ==
PROVIDERS: PCP Electrodiagnostic Medicine; Visit Provider Social Worker
DX: F60.3 Borderline personality disorder (principal); F31.13 Bipolar disorder, current episode manic without psychotic features, severe; F43.12 Post-traumatic stress disorder, chronic
CPT/HCPCS: 90834

== ENCOUNTER → 2020-11-10 13:59 | Outpatient (BNVA) | payer SELFPAY ==
[2020-06-07 14:24] VITALS: BP 117/71; BMI 48.3
== END ==
PROVIDERS: PCP Electrodiagnostic Medicine; Visit Provider Social Worker
DX: F60.3 Borderline personality disorder (principal); F31.13 Bipolar disorder, current episode manic without psychotic features, severe; F43.12 Post-traumatic stress disorder, chronic
CPT/HCPCS: 90834

== ENCOUNTER → 2020-11-11 07:42 | Outpatient (BNVA) | payer SELFPAY ==
[2020-06-07 14:24] VITALS: BP 117/71; BMI 48.3
== END ==
PROVIDERS: PCP Electrodiagnostic Medicine; Visit Provider Nurse Practitioner Psychiatric/Mental Health
DX: F60.3 Borderline personality disorder (principal); F31.13 Bipolar disorder, current episode manic without psychotic features, severe; F43.12 Post-traumatic stress disorder, chronic; Z87.820 Personal history of traumatic brain injury; Z79.899 Other long term (current) drug therapy; F12.90 Cannabis use, unspecified, uncomplicated; F50.81 Binge eating disorder
CPT/HCPCS: 99214

== ENCOUNTER → 2020-11-22 13:48 | Outpatient (BNVA) | payer OTHER, SELFPAY ==
[2020-06-07 14:24] VITALS: BP 117/71; BMI 48.3
== END ==
PROVIDERS: PCP Electrodiagnostic Medicine; Visit Provider Social Worker
DX: F60.3 Borderline personality disorder (principal); F31.13 Bipolar disorder, current episode manic without psychotic features, severe; F43.12 Post-traumatic stress disorder, chronic
CPT/HCPCS: 90834

== ENCOUNTER → 2020-12-01 14:43 | Outpatient (BNVA) | payer SELFPAY ==
[2020-06-07 14:24] VITALS: BP 117/71; BMI 48.3
== END ==
PROVIDERS: PCP Electrodiagnostic Medicine; Visit Provider Nurse Practitioner Family
DX: Z20.822 Contact with and (suspected) exposure to COVID-19 (principal)
CPT/HCPCS: 87635

== ENCOUNTER → 2020-12-06 14:58 | Outpatient (BNVA) | payer OTHER, SELFPAY ==
[2020-06-07 14:24] VITALS: BP 117/71; BMI 48.3
== END ==
PROVIDERS: PCP Electrodiagnostic Medicine; Visit Provider Nurse Practitioner Family
DX: Z20.822 Contact with and (suspected) exposure to COVID-19 (principal)
CPT/HCPCS: 87635

== ENCOUNTER → 2020-12-16 07:52 | Outpatient (BNVA) | payer SELFPAY ==
[2020-06-07 14:24] VITALS: BP 117/71; BMI 48.3
== END ==
PROVIDERS: PCP Electrodiagnostic Medicine; Visit Provider Nurse Practitioner Psychiatric/Mental Health
DX: F60.3 Borderline personality disorder (principal); F31.13 Bipolar disorder, current episode manic without psychotic features, severe; F43.12 Post-traumatic stress disorder, chronic; Z87.820 Personal history of traumatic brain injury; Z79.899 Other long term (current) drug therapy; F12.90 Cannabis use, unspecified, uncomplicated; F50.81 Binge eating disorder
CPT/HCPCS: 99214

== ENCOUNTER → 2021-02-28 13:27 | Outpatient (BNVA) | payer OTHER, SELFPAY ==
[2020-06-07 14:24] VITALS: BP 117/71; BMI 48.3
== END ==
PROVIDERS: PCP Electrodiagnostic Medicine; Visit Provider Nurse Practitioner Psychiatric/Mental Health
DX: F31.13 Bipolar disorder, current episode manic without psychotic features, severe (principal); Z79.899 Other long term (current) drug therapy
CPT/HCPCS: 80053; 80061; 83036

== ENCOUNTER → 2021-04-15 11:44 | Outpatient (BNVA) | payer SELFPAY ==
[2021-03-18 16:04] VITALS: BP 141/92; BMI 47.6
== END ==
PROVIDERS: Visit Provider Registered Nurse Neonatal Intensive Care
DX: N39.0 Urinary tract infection, site not specified (principal); R39.82 Chronic bladder pain; R35.0 Frequency of micturition
CPT/HCPCS: 81000; 87077; 87086; 87184

== ENCOUNTER → 2021-05-09 09:53 | Outpatient (BNVA) | payer SELFPAY ==
[2021-03-18 16:04] VITALS: BP 141/92; BMI 47.6
== END ==
PROVIDERS: Visit Provider Nurse Practitioner Family
DX: R39.82 Chronic bladder pain (principal); N39.0 Urinary tract infection, site not specified
CPT/HCPCS: 81003; 87086

== ENCOUNTER 2021-06-20 13:08 | Outpatient (CLI) | payer SELFPAY ==
[2021-03-18 16:04] VITALS: BP 141/92; BMI 47.6
--- NOTE | 2021-06-20 13:20 | XRR_ITS ---
PROCEDURE INFORMATION: Exam: XR Abdomen Exam date and time: 06/20/2021 1:20 PM Age: 21 years old Clinical indication: Condition or disease; Other: Stones; Additional info: fina Hernandez 06/20/21 @ 1:00 pm appt to follow TECHNIQUE: Imaging protocol: XR of the abdomen. Views: Frontal supine view of the abdomen. 1 View. COMPARISON: CT abdomen pelvis w con* [id number] 03/14/2018 9:04 PM FINDINGS: Gastrointestinal tract: Normal. No bowel dilation. Bones/joints: Unremarkable. XR/XR KUB [id number] IMPRESSION: No acute findings.
== END 2021-06-20 13:09 | disposition home or self-care (01) ==
LOC: RAD 13:13
PROVIDERS: Visit Provider Urology
DX: N20.0 Calculus of kidney (principal); N39.0 Urinary tract infection, site not specified
CPT/HCPCS: 74018; 81003

== ENCOUNTER → 2021-11-01 11:29 | Outpatient (BNVA) | payer OTHER, SELFPAY ==
[2021-03-18 16:04] VITALS: BP 141/92; BMI 47.6
== END ==
PROVIDERS: Visit Provider Registered Nurse Neonatal Intensive Care
DX: Z20.822 Contact with and (suspected) exposure to COVID-19 (principal); U07.1 COVID-19
CPT/HCPCS: 87635

== ENCOUNTER → 2022-02-01 09:41 | Outpatient (BNVA) | payer OTHER, MEDICAID, SELFPAY ==
[2021-03-18 16:04] VITALS: BP 141/92; BMI 47.6
== END ==
PROVIDERS: Referring Provider Nurse Practitioner; Visit Provider Specialist
DX: M65.4 Radial styloid tenosynovitis [de Quervain] (principal)
CPT/HCPCS: 73110

== ENCOUNTER 2022-07-31 20:15 | Emergency (ER) | payer OTHER, BC, SELFPAY ==
[2021-03-18 16:04] VITALS: BP 141/92; BMI 47.6
[2022-07-31 20:16] VITALS: BP 151/89; PULSE 88; RESP 16; TEMP 36.7; O2SAT 96
--- NOTE | 2022-07-31 20:34 | XRR_ITS ---
PROCEDURE INFORMATION: Exam: XR Chest Exam date and time: 07/31/2022 8:51 PM Age: 22 years old Clinical indication: Cough; Additional info: Productive cough TECHNIQUE: Imaging protocol: Radiologic exam of the chest. Views: 1 view. COMPARISON: CR XR chest 2V* [id number] 05/11/2020 9:01 PM FINDINGS: Lungs: Lungs are clear bilaterally. Pleural spaces: No pleural effusion. No pneumothorax. Heart/Mediastinum: The cardiac silhouette and mediastinal contours are unremarkable. Bones/joints: Unremarkable for age. XR/XR chest 1V portable [id number] IMPRESSION: Negative chest radiograph.
--- NOTE | 2022-07-31 20:34 | W.ED.URI ---
HPI - URI/Sore Throat General: Chief Complaint: Upper Respiratory Infection Stated Complaint: Sore Throat\Coughing Up Blood Time Seen by Provider: 07/31/22 20:33 History of Present Illness: 22-year-old female comes in today with sore throat starting yesterday. Patient states she had COVID a little over 1 month ago with a bout of pneumonia. Patient appears nontoxic. Patient appears no acute distress. Patient has a history of PCOS, bipolar disorder, and a borderline personality disorder. Associated symptoms: Deny chest pain, fever(s) or vomiting Review of Systems General: Reports: 10 or more systems reviewed and unremarkable except in HPI and below Const: Denies: fever(s) ENMT: Reports: throat pain Card: Denies: chest pain Resp: Reports: non-productive cough GI: Denies: vomiting PFSH ED PFSH: Medical History Bipolar disorder, current episode manic without psychotic features, severe Borderline personality disorder Chronic post-traumatic stress disorder (PTSD) Eating disorder Marijuana use, episodic Nicotine dependence, other tobacco product, uncomplicated Vaping 6 mg of nicotine Personal history of traumatic brain injury Psychiatric care Recurrent UTI Renal stones Family History Mother Healthy adult Father Healthy adult Social History Smoking and tobacco status: current every day smoker cigarettes Packs smoked per day: 0.25 Years cigarettes smoked: 6 and e-cigarettes E-Cigarette Details: vaporizer device and with nicotine Alcohol intake: never Marital status: Single Current occupational status: employed Physical Exam Const: COMMON NORMALS: alert HENMT: COMMON NORMALS: normocephalic and TM's normal bilaterally HEAD & SCALP: normocephalic NOSE: Normal nares present TYMPANIC MEMBRANE: TM's normal bilaterally MOUTH: Normal oral and palatal mucosa present THROAT: posterior oropharynx abnormal cobblestoning Neck/C-Spine: COMMON NORMALS: full ROM, no lymphadenopathy and no meningeal signs Resp: COMMON NORMALS: normal respiratory effort and clear to auscultation bilaterally AUSCULTATION: clear to auscultation bilaterally Extremity: COMMON NORMALS: normal to inspection Neuro: SENSORIUM/ORIENTATION: Yes alert MENINGEAL SIGNS: Yes no meningeal signs Skin: COMMON NORMALS: turgor normal GENERAL SKIN EXAM: turgor normal Course Vital Signs: Vital signs: Vital Signs Temperature 98.1 F 07/31/22 20:16 Pulse Rate 88 07/31/22 20:16 Respiratory Rate 16 07/31/22 20:16 Blood Pressure 151/89 07/31/22 20:16 Pulse Oximetry 96 07/31/22 20:16 Oxygen Delivery Me thod 07/31/22 20:16 MDM - URI/Sore Throat Medical Decision Making 22-year-old female comes in today with complaints of sore throat and hoarseness for the last 2 days. Patient appears nontoxic. Patient appears in no acute distress. On exam posterior pharynx shows cobblestoning. Patient does have some mild hoarseness in her throat. No asymmetry is noted in the posterior pharynx. No cervical lymphadenopathy is noted. No painful lymphadenopathy is noted. Lungs are clear to auscultation. Vital signs are normal, except for Mild elevation in blood pressure. Differential diagnosis includes strep pharyngitis, viral syndrome, laryngitis. Strep test was negative. Chest x-ray was normal. Reviewed exam with patient with recommendations for treatment and follow-up. Patient reported understanding agreed to plan. Patient was given 10 mg of dexamethasone for her sore throat and laryngitis. Patient reported understanding of care plan need for follow-up or return to ER. Lab Data Radiology Impressions Chest X-Ray 07/31/22 20:34 IMPRESSION: Negative chest radiograph. Laboratory Results Group A Strep Rapid Negative (Negative) 07/31/22 20:38 Discharge Plan Discharge Patient Disposition: Home Clinical Impression: Pharyngitis Qualifiers: Pharyngitis/tonsillitis etiology: unspecified etiology Qualified Code(s): J02.9 - Acute pharyngitis, unspecified Condition: Stable Prescriptions: No Action topiramate [Topamax] 15 mg capsule, sprinkle 75 mg PO DAILY Quviviq 25 mg tablet PO metformin 500 mg tablet 500 mg PO DAILY Qty: 90 3RF Rx Instructions: Start dosage 500 mg w/ dinner daily; increase to 500 mg w/ lunch and dinner wk 3; increase to 500 mg w/ every meal wk 5 spironolactone 100 mg tablet 100 mg PO DAILY Qty: 30 3RF ibuprofen 800 mg tablet 800 mg PO Q8H Qty: 30 3RF Discharge Orders: Discharge ED (Routine); Ordered 07/31/22 Ordered By: Ben Lawson Referrals: Micky Eaton DO [Primary Care Provider] - Discharge Diet: Usual diet Discharge Activity: Increase activity as tolerated Patient Instructions: Pharyngitis (ED) Activity Restrictions/Additional Instructions: Drink plenty of water and fluids. Use acetaminophen and ibuprofen for pain. You can use throat lozenges or Chloraseptic spray for further pain relief. Follow-up with primary care as needed. Return to ED for worsening symptoms such as increased shortness of breath, fever greater than 100.4, inability to swallow fluids, or new concerns. 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
[2022-07-31 20:54] LABS: Rapid Strep A Test Negative (Negative)
[2022-07-31] MEDS: dexamethasone 4 mg Tablet 10 MG PO (21:44)
== END 2022-07-31 21:45 | disposition home or self-care (01) ==
PROVIDERS: Emergency Provider Nurse Practitioner Family; PCP Electrodiagnostic Medicine
DX: J02.9 Acute pharyngitis, unspecified (principal); Z79.84 Long term (current) use of oral hypoglycemic drugs; F17.210 Nicotine dependence, cigarettes, uncomplicated; F17.290 Nicotine dependence, other tobacco product, uncomplicated
CPT/HCPCS: 71045; 87081; 87880; 99284; J8540

== ENCOUNTER → 2022-11-19 17:54 | Outpatient (BNVA) | payer OTHER, BC, SELFPAY ==
[2021-03-18 16:04] VITALS: BP 141/92; BMI 47.6
== END ==
PROVIDERS: PCP Electrodiagnostic Medicine; Visit Provider Nurse Practitioner Family
DX: M25.532 Pain in left wrist (principal)
CPT/HCPCS: 73110

== ENCOUNTER 2023-02-12 12:58 | Emergency (ER) | payer OTHER, MEDICAID, SELFPAY ==
[2021-03-18 16:04] VITALS: BP 141/92; BMI 47.6
--- NOTE | 2023-02-12 13:06 | W.ED.LOWEXIN ---
HPI - Extremity Injury (Lower) General: Chief Complaint: Extremity Injury, Lower Stated Complaint: fall, knee pain Time Seen by Provider: 02/12/23 12:58 Source: patient Mode of arrival: wheelchair Limitations: no limitations History of Present Illness: Patient is a 22-year-old female presents to ED today for evaluation of a left knee injury that she sustained approximately 5 days ago after slipping and falling. Patient reportedly called an ambulance the day of the event but was told she did not require emergent medical care. Patient states she has not been able to bear weight on the extremity over the past 5 days. Patient has no other injuries related to the fall. She denies numbness, tingling, loss of sensation to her lower extremity. No calf pain or swelling. She has not noticed any color/temperature changes. MD complaint: knee injury Onset (ago): day(s) Injury: Left: knee Place: home Severity: severe Relieving factors: immobilization Exacerbating factors: weight bearing, movement and palpation Context: fall Associated symptoms: Reports inability to bear weight Other symptoms: none Review of Systems Const: Denies: fever(s), chills, body aches, fatigue or malaise Card: Denies: chest pain Resp: Denies: dyspnea Musc: Reports: joint pain (L knee) and joint swelling (L knee); Denies: neck pain, back pain, extremity pain, extremity swelling, joint redness or joint warmth Neuro: Reports: difficulty walking (due to L knee pain); Denies: numbness in extremities or sensory changes PFS ED PFSH: Medical History Bipolar disorder, current episode manic without psychotic features, severe Borderline personality disorder Chronic post-traumatic stress disorder (PTSD) Eating disorder Marijuana use, episodic Nicotine dependence, other tobacco product, uncomplicated Vaping 6 mg of nicotine Personal history of traumatic brain injury Psychiatric care Recurrent UTI Renal stones Family History Mother Healthy adult Father Healthy adult Other Colon cancer Thyroid disease Denies family history of Ovarian cancer Diabetes Heart disease Breast cancer Hypertension Uterine cancer Stroke Social History Substance/Drug Use: current Do you think of yourself as: Straight/Heterosexual Physical Exam Const: COMMON NORMALS: no acute distress, patient oriented x3, no limitations and alert GENERAL APPEARANCE: cooperative NUTRITIONAL APPEARANCE: obese morbidly obese ORIENTATION/CONSCIOUSNESS: Yes awake, Yes oriented to person, Yes oriented to place and Yes oriented to time Resp: COMMON NORMALS: normal respiratory effort and clear to auscultation bilaterally AUSCULTATION: clear to auscultation bilaterally Cardio: COMMON NORMALS: regular rhythm RATE: tachycardic RHYTHM: regular rhythm Back/Pelvis: COMMON NORMALS: thoracic and lumbar spine normal to inspection, no thoracic nor lumbar tenderness and thoraco-lumbar ROM normal Extremity: COMMON NORMALS: capillary refill normal, no clubbing, cyanosis or edema, no calf tenderness and no pedal edema GENERAL: Yes normal exam except as noted LEFT LOWER EXTREMITY: Yes knee joint (TTP inferior/anterior knee joint) Left knee: Yes inspection (no obvious bony abnormalities appreciated ), Yes ROM (cannot fully extend or flex due to pain) and Yes neurovascular exam (normal) Neuro: COMMON NORMALS: patient oriented x3, moves all extremities, no focal motor deficits and no sensory deficits noted SENSORIUM/ORIENTATION: Yes alert, Yes oriented to person, Yes oriented to place and Yes oriented to time Skin: TRAUMA: no lacerations or abrasions Course Vital Signs: Vital signs: Vital Signs Temperature 99.1 F 02/12/23 13:16 Pulse Rate 110 H 02/12/23 13:27 Respiratory Rate 18 02/12/23 13:27 Blood Pressure 138/88 02/12/23 13:27 Pulse Oximetry 98 02/12/23 13:27 Oxygen Delivery Me thod Room Air 02/12/23 13:27 MDM - Extremity Injury (Lower) Medical Decision Making XR of her knee showing a nondisplaced medial tibial plateau fracture as well as a fracture of her proximal fibular head with CT recommendation. This was completed. Patient will be placed in a knee immobilizer and given crutches with instructions for no weightbearing and she will follow-up with orthopedics as soon as possible for further evaluation and treatment. Return ED precautions given. Lab Data IMPRESSION: 1. Comminuted, minimally depressed medial tibial plateau fracture. 2. Tibial plateau fracture extends to involve the anterior lateral tibial plateau. No displacement of the lateral tibial plateau fracture. 3. Nondisplaced fibular head fracture. 4. Small lipohemarthrosis. All radiology interpretation(s) finalized by discharge Discharge Plan Discharge Patient Disposition: Home Clinical Impression: Closed fracture of left tibial plateau Qualifiers: Encounter type: initial encounter Qualified Code(s): S82.142A - Displaced bicondylar fracture of left tibia, initial encounter for closed fracture Closed fracture of fibula, proximal, left Qualifiers: Encounter type: initial encounter Fracture morphology: other fracture Qualified Code(s): S82.832A - Other fracture of upper and lower end of left fibula, initial encounter for closed fracture Condition: Stable Prescriptions: New hydrocodone-acetaminophen 5-325 mg tablet 1 tab PO Q6H PRN (Reason: pain) Qty: 20 0RF No Action topiramate [Topamax] 15 mg capsule, sprinkle 75 mg PO DAILY Quviviq 25 mg tablet PO metformin 500 mg tablet 500 mg PO DAILY Qty: 90 3RF Rx Instructions: Start dosage 500 mg w/ dinner daily; increase to 500 mg w/ lunch and dinner wk 3; increase to 500 mg w/ every meal wk 5 spironolactone 100 mg tablet 100 mg PO DAILY Qty: 30 3RF ibuprofen 800 mg tablet 800 mg PO Q8H Qty: 30 3RF Discharge Orders: Discharge ED (Routine); Ordered 02/12/23 Ordered By: Dinah Mercado Referrals: Micky Eaton DO [Primary Care Provider] - Patient Instructions: Opioid Safety, Pain Management Activity Restrictions/Additional Instructions: As we discussed you need to stay in your knee immobilizer at all times apart from showering/bathing. This management should reach out to you soon to set you up with your follow-up orthopedic appointment. 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
[2023-02-12 13:16] VITALS: BP 138/88; PULSE 123; RESP 17; TEMP 37.3; O2SAT 98; BMI 45.8
--- NOTE | 2023-02-12 13:22 | XR_ITS ---
WS: [id number] LEFT KNEE: 3 VIEW(S) TECHNIQUE: AP, oblique(s) and lateral. HISTORY: trauma/fall COMPARISON: 06/04/2019 Quality is limited by technique and body habitus. Acute fracture involving the medial tibial plateau with extension to the metaphysis. Fracture is note d along the articular surface of the tibia. There is an additional nondisplaced fracture at the fibul ar head. Very small suprapatellar joint effusion. No soft tissue abnormality. IMPRESSION: 1. Quality of this examination is suboptimal due to body habitus. 2. Nondisplaced medial tibial plateau fracture. 3. Nondisplaced fibular head fracture. 4. Recommend follow-up LEFT knee CT to confirm fractures and evaluate for additional fractures.
[2023-02-12 13:27] VITALS: BP 138/88; PULSE 110; RESP 18; O2SAT 98
--- NOTE | 2023-02-12 14:00 | CT_ITS ---
WS: [id number] CT LEFT KNEE, NONCONTRAST, 3D. HISTORY: fractures noted on XR Technique: All CT scans at [facility] use at least one of these dose optimization techniques: automated exposure control; mA and/or kV adjustment per patient size (includes targeted exams where dose is matched to clinical indication); or iterative reconstruction. DLP: 384.51 mGy.cm COMPARISON: 02/12/2023 radiographs. Mildly comminuted medial tibial plateau fracture with 2 mm depression. Fracture line extends along th e articular surface into the metaphysis. Fracture does extend along the articular surface of the tibi al plateau to involve the lateral tibia. This is predominantly along the anterior portion of the late ral tibial plateau. No displacement of fracture fragments. Reidentified is a nondisplaced fracture in volving the fibular head. No femoral condyle fracture is identified. Small lipohemarthrosis. IMPRESSION: 1. Comminuted, minimally depressed medial tibial plateau fracture. 2. Tibial plateau fracture extends to involve the anterior lateral tibial plateau. No displacement of the lateral tibial plateau fracture. 3. Nondisplaced fibular head fracture. 4. Small lipohemarthrosis.
--- NOTE | 2023-02-13 08:19 | PC.SOCIAL ---
Ortho Referral Referral to clinic at this time. Clinic will contact patient with appt date/time.
== END 2023-02-12 15:19 | disposition home or self-care (01) ==
PROVIDERS: Emergency Provider Physician Assistant; PCP Electrodiagnostic Medicine
DX: S82.142A Displaced bicondylar fracture of left tibia, initial encounter for closed fracture (principal); S82.832A Other fracture of upper and lower end of left fibula, initial encounter for closed fracture; Z79.84 Long term (current) use of oral hypoglycemic drugs; W01.0XXA Fall on same level from slipping, tripping and stumbling without subsequent striking against object, initial encounter
CPT/HCPCS: 29530; 73562; 73700; 99284; E0114

== ENCOUNTER → 2023-02-15 08:05 | Outpatient (BNVA) | payer OTHER, MEDICAID, SELFPAY ==
[2021-03-18 16:04] VITALS: BP 141/92; BMI 47.6
== END ==
PROVIDERS: PCP Electrodiagnostic Medicine; Referring Provider Physician Assistant; Visit Provider Physician Assistant
DX: S82.142A Displaced bicondylar fracture of left tibia, initial encounter for closed fracture (principal); S82.832A Other fracture of upper and lower end of left fibula, initial encounter for closed fracture; W01.0XXA Fall on same level from slipping, tripping and stumbling without subsequent striking against object, initial encounter; Z79.891 Long term (current) use of opiate analgesic
CPT/HCPCS: 73562

== ENCOUNTER 2023-02-15 09:43 | Outpatient (CLI) | payer OTHER, MEDICAID, SELFPAY ==
[2021-03-18 16:04] VITALS: BP 141/92; BMI 47.6
== END 2023-02-15 09:44 | disposition home or self-care (01) ==
LOC: SPT 09:43
PROVIDERS: PCP Electrodiagnostic Medicine; Visit Provider Physician Assistant
DX: Z46.89 Encounter for fitting and adjustment of other specified devices (principal); S82.142D Displaced bicondylar fracture of left tibia, subsequent encounter for closed fracture with routine healing; X58.XXXD Exposure to other specified factors, subsequent encounter
CPT/HCPCS: 97760; L1832

== ENCOUNTER → 2023-02-22 08:33 | Outpatient (BNVA) | payer OTHER, MEDICAID, SELFPAY ==
[2021-03-18 16:04] VITALS: BP 141/92; BMI 47.6
== END ==
PROVIDERS: PCP Electrodiagnostic Medicine; Visit Provider Physician Assistant
DX: S82.832D Other fracture of upper and lower end of left fibula, subsequent encounter for closed fracture with routine healing; S82.142D Displaced bicondylar fracture of left tibia, subsequent encounter for closed fracture with routine healing; X58.XXXD Exposure to other specified factors, subsequent encounter
CPT/HCPCS: 73562

== ENCOUNTER → 2023-03-08 09:46 | Outpatient (BNVA) | payer OTHER, MEDICAID, SELFPAY ==
[2021-03-18 16:04] VITALS: BP 141/92; BMI 47.6
== END ==
PROVIDERS: PCP Electrodiagnostic Medicine; Visit Provider Physician Assistant
DX: S82.142D Displaced bicondylar fracture of left tibia, subsequent encounter for closed fracture with routine healing; S82.832D Other fracture of upper and lower end of left fibula, subsequent encounter for closed fracture with routine healing; X58.XXXD Exposure to other specified factors, subsequent encounter
CPT/HCPCS: 73562

== ENCOUNTER → 2023-04-05 09:43 | Outpatient (BNVA) | payer OTHER, MEDICAID, SELFPAY ==
[2021-03-18 16:04] VITALS: BP 141/92; BMI 47.6
== END ==
PROVIDERS: PCP Electrodiagnostic Medicine; Visit Provider Physician Assistant
DX: S82.142D Displaced bicondylar fracture of left tibia, subsequent encounter for closed fracture with routine healing; S82.832D Other fracture of upper and lower end of left fibula, subsequent encounter for closed fracture with routine healing; X58.XXXD Exposure to other specified factors, subsequent encounter
CPT/HCPCS: 73562

== ENCOUNTER → 2023-05-08 15:45 | Outpatient (BNVA) | payer OTHER, MEDICAID, SELFPAY ==
[2021-03-18 16:04] VITALS: BP 141/92; BMI 47.6
== END ==
PROVIDERS: PCP Electrodiagnostic Medicine; Visit Provider Physician Assistant
DX: S82.142D Displaced bicondylar fracture of left tibia, subsequent encounter for closed fracture with routine healing (principal); S82.832D Other fracture of upper and lower end of left fibula, subsequent encounter for closed fracture with routine healing; X58.XXXD Exposure to other specified factors, subsequent encounter
CPT/HCPCS: 73562

== ENCOUNTER 2023-05-25 10:59 | Outpatient (RCR) | payer OTHER, MEDICAID, SELFPAY ==
[2021-03-18 16:04] VITALS: BP 141/92; BMI 47.6
== END 2023-06-06 23:59 | disposition home or self-care (01) ==
LOC: SPT 10:59
PROVIDERS: PCP Electrodiagnostic Medicine; Visit Provider Physician Assistant
DX: S82.142D Displaced bicondylar fracture of left tibia, subsequent encounter for closed fracture with routine healing (principal); X58.XXXD Exposure to other specified factors, subsequent encounter
CPT/HCPCS: 97110; 97161

== ENCOUNTER 2023-06-07 06:00 | Outpatient (RCR) | payer OTHER, MEDICAID, SELFPAY ==
[2021-03-18 16:04] VITALS: BP 141/92; BMI 47.6
== END 2023-06-12 23:59 | disposition home or self-care (01) ==
LOC: SPT 06:00
PROVIDERS: PCP Electrodiagnostic Medicine; Visit Provider Physician Assistant
DX: Z47.89 Encounter for other orthopedic aftercare (principal)
CPT/HCPCS: 97110

== ENCOUNTER → 2023-09-04 13:00 | Outpatient (BNVA) | payer OTHER, MEDICAID, SELFPAY ==
[2021-03-18 16:04] VITALS: BP 141/92; BMI 47.6
== END ==
PROVIDERS: PCP Electrodiagnostic Medicine; Visit Provider Orthopaedic Surgery
DX: S82.142D Displaced bicondylar fracture of left tibia, subsequent encounter for closed fracture with routine healing (principal); X58.XXXD Exposure to other specified factors, subsequent encounter
CPT/HCPCS: 73562

== ENCOUNTER 2023-10-15 15:45 | Outpatient (CLI) | payer OTHER, MEDICAID, SELFPAY ==
[2021-03-18 16:04] VITALS: BP 141/92; BMI 47.6
--- NOTE | 2023-10-15 15:53 | XRR_ITS ---
PROCEDURE INFORMATION: Exam: XR Left Knee Exam date and time: 10/15/2023 3:57 PM Age: 23 years old Clinical indication: Bilateral; Patient HX: Lt knee pain since history of FX in feb; Additional info: Left knee FX TECHNIQUE: Imaging protocol: Radiologic exam of the left knee. Views: 3 views. COMPARISON: CR XR knee LT 3V* [id number] 09/04/2023 1:01 PM FINDINGS: Bones/joints: Alignment is normal. Joint spaces are preserved. No acute fracture. No joint effusion. Soft tissues: Visible soft tissues are unremarkable. XR/XR knee LT 3V* [id number] IMPRESSION: No acute findings.
--- NOTE | 2023-10-15 16:00 | MR_ITS ---
WS: [id number] MRI LEFT KNEE HISTORY: Knee Pain COMPARISON: 03/12/2017 Anterior cruciate ligament: Intact. Posterior cruciate ligament: Intact. Medial collateral ligament: Intact. Posterior lateral corner structures: Intact. Medial menisci: Intact. Normal signal, size and shape. Lateral meniscus: Intact. Normal signal, size and shape. Extensor mechanism: Distal quadriceps tendon and patellar tendons are intact. Fluid and soft tissue: No joint effusion. No Gusman's cyst. Osseous and articular structures: Patellofemoral compartment: Slight lateral subluxation of the patella. No marrow edema. Cartilage rem ains intact. Medial compartment: Very slight narrowing of the joint space. Residual, healing medial tibial plateau fracture is identified. Fracture extends to the central portion of the medial tibial plateau. There is very slight depression with loss of cartilage in continuity with marrow signal abnormality. Otherw ise no displacement. There is additional very subtle marrow edema involving the medial femoral condyl e which was not present on the prior examination probably representing healing contusion injury. Lateral compartment: Normal. MR/MR knee LT wo/w con [id number] IMPRESSION: 1. Healing medial tibial plateau fracture without displacement. There is sligh t depression of the central fracture. Fracture is in continuity with injury to the cartilage. 2. Additional, mild marrow edema in the medial femoral condyle but no fracture . 3. No meniscal tear and no ACL tear.
[2023-10-15] MEDS: gadobenate dimeglumine 20 mL vial IV (16:21)
== END 2023-10-15 15:46 | disposition home or self-care (01) ==
PROVIDERS: PCP Electrodiagnostic Medicine; Visit Provider Orthopaedic Surgery
DX: M25.562 Pain in left knee (principal); S82.832D Other fracture of upper and lower end of left fibula, subsequent encounter for closed fracture with routine healing
CPT/HCPCS: 73562; 73723; A9577

== ENCOUNTER → 2024-07-09 14:54 | Outpatient (BNVA) | payer MEDICAID, SELFPAY ==
[2021-03-18 16:04] VITALS: BP 141/92; BMI 47.6
== END ==
PROVIDERS: PCP Electrodiagnostic Medicine; Visit Provider Family Medicine
DX: R50.9 Fever, unspecified (principal)
CPT/HCPCS: 87400

== ENCOUNTER 2025-02-26 14:16 | Outpatient (CLI) | payer OTHER, SELFPAY ==
[2021-03-18 16:04] VITALS: BP 141/92; BMI 47.6
--- NOTE | 2025-02-26 14:23 | MR_ITS ---
WS: [id number] MRI LUMBAR SPINE NONCONTRAST HISTORY: LUMBAR BACK PAIN COMPARISON: None available. TECHNIQUE: Sagittal and axial multisequence imaging is submitted. Normal lumbar alignment with no compression fractures or marrow edema. Mild disc desiccation at L4-5. Conus terminates normally at L1-2 disc level. L1-L2: Normal. L2-L3: Normal. L3-L4: Minimal disc bulging and facet arthritis. No high-grade stenosis. L4-L5: Mild annular disc bulge with a central small disc protrusion and annular fissure. Mild ligamentum flavum and facet arthritis. Small amount of fluid in the facet joints. There is no significant contact on the traversing or exiting nerve roots. L5-S1: Normal. Paravertebral soft tissues are negative. MR/MR lumbar spine wo con* [id number] IMPRESSION: 1. No acute lumbar spine fracture. 2. No high-grade central or foraminal stenosis. 3. Very minimal disc bulging at L4-5 with a small central annular fissure and protrusion. No stenosis. No contact on the nerve roots.
== END 2025-02-26 14:17 | disposition home or self-care (01) ==
LOC: RAD 14:17
PROVIDERS: PCP Electrodiagnostic Medicine; Visit Provider Electrodiagnostic Medicine
DX: M51.360 Other intervertebral disc degeneration, lumbar region with discogenic back pain only (principal); M51.26 Other intervertebral disc displacement, lumbar region; M51.A4 Intervertebral annulus fibrosus defect, small, lumbosacral region
CPT/HCPCS: 72148